=== PATIENT | female | born 1935 | race Caucasian/White ===

== ENCOUNTER 2017-05-06 19:07 | Observation (INO) | payer OTHER, MEDICARE ==
[2017-05-06] MEDS ORDERED: NS 1,000 ML IV ONE (19:33)
[2017-05-06] MEDS ORDERED: ONDANSETRON 4 MG/2 ML VIAL IVP ONE (19:33)
--- NOTE | 2017-05-06 19:33 | EDPHY ---
H & P Stated Complaint: abd pain Time Seen by Provider: 05/06/17 19:15 HPI/ROS: HPI CHIEF COMPLAINT: Abdominal pain, nausea, vomiting HISTORY OF PRESENT ILLNESS: This patient is a 81-year-old female she is very pleasant, she has a history of hypertension, AFib on Coumadin, history of small- bowel obstruction, history of a Minerva fundoplication, gastroplexy, presents emergency room with a few days of nausea, abdominal bloating and abdominal discomfort. Belching. She does states she still passing gas and having bowel movements. No vomiting. She presents emergency room if she is having ongoing abdominal discomfort and bloating. She is concerned she may have another small- bowel obstruction. Past Medical History: Hypertension, AFib on Coumadin, SBO Past Surgical History: Minerva fundoplication, gastroplexy, congenital diaphragmatic hernia repair Social History: Denies drugs alcohol tobacco. Family History: Noncontributory ROS REVIEW OF SYSTEMS: A comprehensive 10 point review of systems is otherwise negative aside from elements mentioned in the history of present illness. Exam Constitutional triage nursing summary reviewed, vital signs reviewed, awake/ alert. Eyes normal conjunctivae and sclera, EOMI, PERRLA. HENT normal inspection, atraumatic, moist mucus membranes, no epistaxis, neck supple/ no meningismus, no raccoon eyes. Respiratory clear to auscultation bilaterally, normal breath sounds, no respiratory distress, no wheezing. Cardiovascular rate normal, regular rhythm, no murmur, no edema, distal pulses normal. Gastrointestinal mild tender palpation diffusely, no guarding or peritoneal signs, distended abdomen, hyperactive bowel sounds, no rebound, no guarding, no distension, no pulsatile mass. Genitourinary no CVA tenderness. Musculoskeletal no midline vertebral tenderness, full range of motion, no calf swelling, no tenderness of extremities, no meningismus, good pulses, neurovascularly intact. Skin pink, warm, & dry, no rash, skin atraumatic. Neurologic awake, alert and oriented x 3, AAOx3, moves all 4 extremities equally, motor intact, sensory intact, CN II-XII intact, normal cerebellar, normal vision, normal speech. Psychiatric normal mood/affect. Heme/Lymph/Immune no lymphadenopathy. Differential diagnosis includes but is not limited to and in no particular order : Bowel obstruction, appendicitis, gallbladder disease, diverticulitis, colitis , enteritis, perforated viscus, gastritis, GERD, esophagitis, urinary tract infection, pyelonephritis, kidney stones Medical Decision Making: Plan for this patient IV establishment with IV fluid bolus, IV Zofran nausea, CT scan abdomen pelvis with IV contrast rule out acute abdominal process or SBO, check electrolytes, and re-evaluate. Re-evaluation: EKG interpretation by me on record in [facility] system. Impression time of EKG 2020, this is sinus rhythm no ST elevation no significant ST depression or significant T-wave abnormality. 2138: Patient's CT scan shows no evidence SBO but does show gastric outlet obstruction. Unclear etiology at this time. However given the gastric abnormality is fluid-filled she will benefit from an NG tube. I will admit her to the hospitalist service, additionally I will consult surgery for evaluation of this. 2139: spoke with Dr. Jack 2139: Spoke with Dr. Campbell For consult. 2140: Spoke with patient at length. She agrees for NG tube. She agrees for admission. Source: Patient - Personal History Current Tetanus/Diphtheria Vaccine: Yes Current Tetanus Diphtheria and Acellular Pertussis (TDAP): Yes - Medical/Surgical History Hx Asthma: No Hx Chronic Respiratory Disease: No Hx Diabetes: No Hx Cardiac Disease: No Hx Renal Disease: No Hx Cirrhosis: No Hx Alcoholism: No Hx HIV/AIDS: No Hx Splenectomy or Spleen Trauma: No Other PMH: gastritis A-fib blood thinners, OA. abd surg. appy, L hip replacement - Social History Smoking Status: Never smoked Constitutional: Initial Vital Signs Temperature (C) 36.5 C 05/06/17 19:11 Heart Rate 65 05/06/17 19:11 Respiratory Rate 16 05/06/17 19:11 Blood Pressure 172/86 H 05/06/17 19:11 O2 Sat (%) 97 05/06/17 19:11 O2 Delivery Mode Room Air Allergies/Adverse Reactions: codeine Allergy (Verified 05/06/17 19:17) Latex, Natural Rubber Allergy (Verified 05/06/17 19:17) levofloxacin [From Levaquin] Allergy (Verified 05/06/17 19:17) Home Medications: Medication Instructions Recorded Calcium Carb W/Vit D [Calcium Carb 500 mg PO DAILY 05/06/17 W/Vit D 500/200 (*)] Cholecalciferol Vit D3 [Vitamin D3 1,000 units PO DAILY 05/06/17 (*)] Cyanocobalamin [Vitamin B12 (*)] 1,000 mcg PO DAILY 05/06/17 Herbals/Supplements -Info Only 1 ea PO DAILY 05/06/17 Lisinopril [Zestril 40 mg (*)] 40 mg PO DAILY 05/06/17 Methocarbamol [Robaxin 750 mg (*)] 750 mg PO QID PRN 05/06/17 Metoprolol Succinate 25 mg PO DAILY 05/06/17 Metoprolol Succinate 50 mg PO HS 05/06/17 Multivitamins [Multivitamin (*)] 1 each PO DAILY 05/06/17 Pantoprazole Sodium [Protonix 40mg 40 mg PO BID 05/06/17 (*)] Polyethylene Glycol 3350 [Miralax 17 gm PO DAILY 05/06/17 17 gm (*)] Warfarin Sodium 5 mg PO TUTH 05/06/17 Warfarin Sodium [Coumadin 2.5MG 2.5 mg PO SUMOWEFRSA 05/06/17 (*)] traMADol [Ultram 50 mg (*)] 50 mg PO Q6 PRN 05/06/17 Medical Decision Making - Data Points Laboratory Results: Laboratory Results 05/06/17 19:49 05/06/17 19:49 Medications Given: Discontinued Medications Al Hydroxide/Mg Hydroxide (Maalox Susp) 30 ml PO ONCE ONE Stop: 05/06/17 20:15 Last Admin: 05/06/17 20:19 Dose: 30 ml Hydromorphone HCl (Dilaudid) 0.2 - 0.4 mg IVP Q2HRS PRN PRN Reason: Pain, Severe Unable to Take PO Stop: 05/16/17 22:27 Last Admin: 05/07/17 08:24 Dose: 0.2 mg Hyoscyamine Sulfate (Levsin, Hyomax-Sl) 0.25 mg PO ONCE ONE Stop: 05/06/17 20:15 Last Admin: 05/06/17 20:19 Dose: 0.25 mg Sodium Chloride (Ns) 1,000 mls @ 0 mls/hr IV EDNOW ONE; Wide Open PRN Reason: Protocol Stop: 05/06/17 19:34 Last Admin: 05/06/17 19:47 Dose: 1,000 mls Dextrose/Sodium Chloride (D5w 1/2 Ns) 1,000 mls @ 100 mls/hr IV CONT VICKY Stop: 11/02/17 22:29 Last Admin: 05/07/17 07:36 Dose: 1,000 mls Lidocaine (Lidocaine 2% Viscous) 15 ml PO ONCE ONE Stop: 05/06/17 20:15 Last Admin: 05/06/17 20:19 Dose: 15 ml Lisinopril (Zestril) 40 mg PO DAILY VICKY Stop: 11/03/17 11:29 Last Admin: 05/07/17 12:38 Dose: Not Given Ondansetron HCl (Zofran) 4 mg IVP EDNOW ONE Stop: 05/06/17 19:34 Last Admin: 05/06/17 19:55 Dose: 4 mg Pantoprazole Sodium (Protonix) 40 mg PO BID VICKY Stop: 11/03/17 11:29 Last Admin: 05/07/17 12:41 Dose: 40 mg Warfarin Sodium (Coumadin) 2.5 mg PO SUMOWEFRSA VICKY Stop: 11/03/17 11:29 Last Admin: 05/07/17 13:12 Dose: Not Given Departure - Departure Disposition: [facility] Acute Clinical Impression: Gastric outlet obstruction Condition: Fair
[2017-05-06] MEDS ORDERED: IOPAMIDOL (ISOVUE-300) 100 ML BTL ONE (19:46)
[2017-05-06 19:55] LABS: PLATELET COUNT 274 10^3/uL (150-400)
[2017-05-06 20:04] LABS: INR 3.31 (0.83-1.16); PROTIME(PATIENT) 33.4 SEC (12.0-15.0)
[2017-05-06] MEDS ORDERED: HYOSCYAMINE SULFATE 0.125 MG TAB PO ONE (20:14)
[2017-05-06] MEDS ORDERED: LIDOCAINE 2% VISCOUS 15 ML UDCUP PO ONE (20:14)
[2017-05-06] MEDS ORDERED: MAG HYDROX/AL HYDROX/SIMETH 30 ML UDCUP PO ONE (20:14)
--- NOTE | 2017-05-06 20:24 | CPEKG ---
Heart Rate: 58 RR Interval: 1034 P-R Interval: 192 QRSD Interval: 100 QT Interval: 428 QTC Interval: 421 P [place]: 58 QRS [place]: 13 T Wave [place]: 28 EKG Severity - ABNORMAL ECG - EKG Impression: SINUS RHYTHM EKG Impression: SUPRAVENTRICULAR BIGEMINY Electronically Signed By: Serge Amaya 06-May-2017 23:13:41
[2017-05-06] MEDS ORDERED: ONDANSETRON DISINTEGRATING 4 MG TAB PO PRN (22:28)
[2017-05-06] MEDS ORDERED: ONDANSETRON 4 MG/2 ML VIAL IVP PRN (22:28)
[2017-05-06] MEDS ORDERED: PROMETHAZINE HCL 25 MG/ML INJ IVP PRN (22:28)
[2017-05-06] MEDS ORDERED: ACETAMINOPHEN 325 MG TAB PO PRN (22:28)
[2017-05-06] MEDS ORDERED: HYDROmorphONE/DILAUDID 2 MG/ML INJ IVP PRN (22:28)
[2017-05-06] MEDS ORDERED: D5W 1/2 NS 1,000 ML IV SCH (22:30)
--- NOTE | 2017-05-07 01:27 | PDGENHP ---
History and Physical - Chief Complaint Abdominal pain - History of Present Illness 81 yo F w/ hx of hiatal hernia s/p repair, gastroparesis, and AF presents with nausea, abdominal distention, and pain. Patient first noticed mild symptoms of distention and nausea 2 days ago. The symptoms persisted over the last 2 days and worsened today, so she presented to the ED. In the ED CT scan was revealing of significant gastric distention c/w gastroparesis vs. gastric outlet obstruction. Her symptoms have improved significantly after the placement of an NGT. She denies fevers, chills, diarrhea, BRBPR, and melena. She describes that she first experienced issues from hiatal hernia in 2014. She has a likely fundoplication in 2016 for this. Since, she has had occasional issues with gastroparesis. History Information - Allergies/Home Medication List Allergies/Adverse Reactions: codeine Allergy (Verified 05/06/17 19:17) Latex, Natural Rubber Allergy (Verified 05/06/17 19:17) levofloxacin [From Levaquin] Allergy (Verified 05/06/17 19:17) Home Medications: Calcium Carb W/Vit D [Calcium Carb W/Vit D 500/200 (*)] 500 mg PO DAILY [Last Taken 05/06/17] Cholecalciferol Vit D3 [Vitamin D3 (*)] 1,000 units PO DAILY 05/06/17 [Last Taken 05/06/17] Cyanocobalamin [Vitamin B12 (*)] 1,000 mcg PO DAILY 05/06/17 [Last Taken ] Herbals/Supplements -Info Only 1 ea PO DAILY 05/06/17 [Last Taken Unknown] Lisinopril [Zestril 40 mg (*)] 40 mg PO DAILY 05/06/17 [Last Taken 05/06/17] Methocarbamol [Robaxin 750 mg (*)] 750 mg PO QID PRN 05/06/17 [Last Taken Unknown] Metoprolol Succinate 25 mg PO DAILY 05/06/17 [Last Taken 05/06/17] Metoprolol Succinate 50 mg PO HS 05/06/17 [Last Taken 05/05/17] Multivitamins [Multivitamin (*)] 1 each PO DAILY 05/06/17 [Last Taken 05/06/17] Pantoprazole Sodium [Protonix 40mg (*)] 40 mg PO BID 05/06/17 [Last Taken ] Polyethylene Glycol 3350 [Miralax 17 gm (*)] 17 gm PO DAILY 05/06/17 [Last Taken 05/06/17] Warfarin Sodium 5 mg PO TUTH 05/06/17 [Last Taken 05/05/17] Warfarin Sodium [Coumadin 2.5MG (*)] 2.5 mg PO SUMOWEFRSA 05/06/17 [Last Taken 05/04/17] traMADol [Ultram 50 mg (*)] 50 mg PO Q6 PRN 05/06/17 [Last Taken Unknown] I have personally reviewed and updated: family history, medical history - Past Medical History no pertinent PMH Additional medical history: Hiatal hernia s/p repair. Gastroparesis - Surgical History Additional surgical history: Fundoplication - Family History Additional family history: Grandmother had stomach cancer - Social History Smoking Status: Never smoked Review of Systems Review of Systems: ROS: 10pt was reviewed & negative except for what was stated in HPI & below Physical Exam Physical Exam: Temp Pulse Resp BP Pulse Ox 36.5 C 89 20 155/80 H 95 05/06/17 19:11 05/06/17 22:34 05/06/17 22:34 05/06/17 22:34 05/06/17 22:34 Constitutional: no apparent distress, not in pain Eyes: PERRL, EOMI Ears, Nose, Mouth, Throat: moist mucous membranes, no oral mucosal ulcers Cardiovascular: regular rate and rhythym, no murmur, rub, or gallop Respiratory: no respiratory distress, no rales or rhonchi Gastrointestinal: normoactive bowel sounds, soft, non-tender abdomen Skin: warm, normal color Musculoskeletal: full muscle strength, no muscle tenderness Neurologic: AAOx3, CN II-XII Intact Psychiatric: interacting appropriately, not anxious Lab Data & Imaging Review 05/06/17 19:49 05/06/17 19:49 WBC 7.92 10^3/uL (3.80-9.50) 05/06/17 19:49 RBC 4.57 10^6/uL (4.18-5.33) 05/06/17 19:49 Hgb 13.8 g/dL (12.6-16.3) 05/06/17 19:49 Hct 42.4 % (38.0-47.0) 05/06/17 19:49 MCV 92.8 fL (81.5-99.8) 05/06/17 19:49 MCH 30.2 pg (27.9-34.1) 05/06/17 19:49 MCHC 32.5 g/dL (32.4-36.7) 05/06/17 19:49 RDW 13.2 % (11.5-15.2) 05/06/17 19:49 Plt Count 274 10^3/uL (150-400) 05/06/17 19:49 MPV 10.0 fL (8.7-11.7) 05/06/17 19:49 Neut % (Auto) 62.0 % (39.3-74.2) 05/06/17 19:49 Lymph % (Auto) 26.4 % (15.0-45.0) 05/06/17 19:49 [place] % (Auto) 9.6 % (4.5-13.0) 05/06/17 19:49 Eos % (Auto) 1.1 % (0.6-7.6) 05/06/17 19:49 Baso % (Auto) 0.5 % (0.3-1.7) 05/06/17 19:49 Nucleat RBC Rel Count 0.0 % (0.0-0.2) 05/06/17 19:49 Absolute Neuts (auto) 4.91 10^3/uL (1.70-6.50) 05/06/17 19:49 Absolute Lymphs (auto) 2.09 10^3/uL (1.00-3.00) 05/06/17 19:49 Absolute Monos (auto) 0.76 10^3/uL (0.30-0.80) 05/06/17 19:49 Absolute Eos (auto) 0.09 10^3/uL (0.03-0.40) 05/06/17 19:49 Absolute Basos (auto) 0.04 10^3/uL (0.02-0.10) 05/06/17 19:49 Absolute Nucleated RBC 0.00 10^3/uL (0-0.01) 05/06/17 19:49 Immature Gran % 0.4 % (0.0-1.1) 05/06/17 19:49 Immature Gran # 0.03 10^3/uL (0.00-0.10) 05/06/17 19:49 PT 33.4 SEC (12.0-15.0) H 05/06/17 19:49 INR 3.31 (0.83-1.16) H 05/06/17 19:49 APTT 43.7 SEC (23.0-38.0) H 05/06/17 19:49 VBG Lactic Acid 1.2 mmol/L (0.7-2.1) 05/06/17 19:49 Sodium 138 mEq/L (135-145) 05/06/17 19:49 Potassium 4.0 mEq/L (3.5-5.2) 05/06/17 19:49 Chloride 98 mEq/L (97-110) 05/06/17 19:49 Carbon Dioxide 26 mEq/l (22-31) 05/06/17 19:49 Anion Gap 14 mEq/L (8-16) 05/06/17 19:49 BUN 22 mg/dL (7-23) 05/06/17 19:49 Creatinine 0.8 mg/dL (0.6-1.0) 05/06/17 19:49 Estimated GFR > 60 05/06/17 19:49 Glucose 88 mg/dL (70-100) 05/06/17 19:49 Calcium 9.4 mg/dL (8.5-10.4) 05/06/17 19:49 Total Bilirubin 0.5 mg/dL (0.1-1.4) 05/06/17 19:49 Conjugated Bilirubin 0.4 mg/dL (0.0-0.5) 05/06/17 19:49 Unconjugated Bilirubin 0.1 mg/dL (0.0-1.1) 05/06/17 19:49 AST 43 IU/L (14-46) 05/06/17 19:49 ALT 55 IU/L (9-52) H 05/06/17 19:49 Alkaline Phosphatase 107 IU/L (38-126) 05/06/17 19:49 Troponin I < 0.012 ng/mL (0.000-0.034) 03/16/18 20:20 Total Protein 7.6 g/dL (6.3-8.2) 05/06/17 19:49 Albumin 4.6 g/dL (3.5-5.0) 05/06/17 19:49 Lipase 385 IU/L (23-300) H 05/06/17 19:49 Imaging Review: Imaging Impressions Abdomen CT 05/06/17 19:42 Impression: Massive air and fluid-filled distention of the stomach suggesting gastroparesis or gastric outlet obstruction. Other findings as above. Results called to Dr. Sandhu at 9:20 PM. Chest X-Ray 05/06/17 22:36 Impression: NG tube extends to the stomach, with persistent air-filled distention of the stomach underneath the left hemidiaphragm. Assessment & Plan Assessment: 81 yo F w/ hx of AF, hiatal hernia s/p repair, and gastroparesis presents with discomfort from significant gastric distention. Plan: 1. Gastric distention - Imaging findings c/w gastroparesis vs. gastric outlet obstruction. I suspect the former noting prior history of the same after repair of hiatal hernia in 2016. - Admit for observation and conservative management - NGT placed, NPO, mIVF, anti-emetics - Surgery service consulted, appreciate assistance 2. Hx hiatal hernia - S/p surgical repair in 2016, likely predisposing to above. 3. AF - On warfarin for AC and metoprolol for rate control. INR 3.3 on admission , monitor daily INR. Diet - NPO, ADAT Code - Full Ppx - SCDs Dispo - Admit under observation status
[2017-05-07 06:01] LABS: PLATELET COUNT 202 10^3/uL (150-400)
[2017-05-07 06:09] LABS: INR 3.72 (0.83-1.16); PROTIME(PATIENT) 36.5 SEC (12.0-15.0)
[2017-05-07] MEDS ORDERED: METHOCARBAMOL 750 MG TAB PO PRN (11:25)
[2017-05-07] MEDS ORDERED: PANTOPRAZOLE SODIUM 40 MG TAB PO SCH (11:30)
[2017-05-07] MEDS ORDERED: WARFARIN SODIUM 2.5 MG TAB PO SCH (11:30)
[2017-05-07] MEDS ORDERED: LISINOPRIL 40 MG TAB PO SCH (11:30)
[2017-05-07] MEDS ORDERED: PANTOPRAZOLE SODIUM 40 MG TAB PO ONE (12:40)
[2017-05-07 14:38] VITALS: BP 176/87; PULSE 59; RESP 18; TEMP 98.2; O2SAT 92
--- NOTE | 2017-05-07 18:30 | GDS ---
[f rep st] DISCHARGE SUMMARY DISCHARGE DIAGNOSES: 1. Gastroparesis with bloating. 2. Large gastric bubble. HOSPITAL COURSE: The patient had an NG tube placed with symptomatic relief. She tolerated an oral d iet. She is discharged home. I have discussed it with the cnc maintenance technician who will have a nurse from their practice call her. The patient had no metabolic derangements and a nontender abdominal ex am. /[id number]/MODL
[2017-05-07] MEDS ORDERED: METOPROLOL SUCCINATE XR 25 MG TAB PO SCH (21:00)
[2017-05-08] MEDS ORDERED: MULTIVITAMINS 1 EACH TAB PO SCH (09:00)
[2017-05-08] MEDS ORDERED: POLYETHYLENE GLYCOL 3350 17 GM PKT PO SCH (09:00)
[2017-05-08] MEDS ORDERED: METOPROLOL SUCCINATE XR 25 MG TAB PO SCH (09:00)
[2017-05-10] MEDS ORDERED: WARFARIN SODIUM 5 MG TAB PO SCH (11:25)
== END 2017-05-07 14:37 | disposition home or self-care (01) ==
PROVIDERS: ADMIT Student in an Organized Health Care Education/Training Program; ATTEND Internal Medicine
PROC: 0D9670Z Drainage of Stomach with Drainage Device, Via Natural or Artificial Opening (ICD-10-PCS; principal; 2017-05-06)
DX: K31.84 Gastroparesis (principal); R14.0 Abdominal distension (gaseous); E86.9 Volume depletion, unspecified; I10 Essential (primary) hypertension; I48.91 Unspecified atrial fibrillation; Z79.01 Long term (current) use of anticoagulants; Z96.642 Presence of left artificial hip joint
CPT/HCPCS: 71045; 74177; 93005; 96361; 96374; 99285; G0378; J1170; J2405; Q9967

== ENCOUNTER 2018-04-10 16:08 | Inpatient (IN) | payer OTHER, MEDICARE ==
--- NOTE | 2018-04-10 16:30 | EDPHY ---
H & P Time Seen by Provider: 04/10/18 16:18 HPI/ROS: CHIEF COMPLAINT: Left graham hematoma HISTORY OF PRESENT ILLNESS: Patient is an 82-year-old female with a history of atrial fibrillation on Coumadin. She had a doctor's visit earlier this morning and was started on Lasix for some mild lower extremity edema. When she was getting back into her car she bumped her left graham on something. Since then she has developed large hematoma to her left graham. No abrasion or laceration. She has been ambulatory. Her last INR was checked 2 weeks ago and was 2.5. No hip or knee pain. She did not injure her arms head or neck. Severity: Moderate Modifying factors: None REVIEW OF SYSTEMS: Constitutional: denies: chills, fever, recent illness, recent injury EENTM: denies: blurred vision, double vision, nose congestion Respiratory: denies: cough, shortness of breath Cardiac: denies: chest pain, irregular heart rate, lightheadedness, palpitations Gastrointestinal/Abdominal: denies: abdominal pain, diarrhea, nausea, vomiting, blood streaked stools Genitourinary: denies: dysuria, frequency, hematuria, pain Musculoskeletal: denies: joint pain, muscle pain Skin: See HPI Neurological: denies: headache, numbness, paresthesia, tingling, dizziness, weakness Hematologic/Lymphatic: denies: blood clots, easy bleeding, easy bruising Immunologic/allergic: denies: HIV/AIDS, transplant 10 systems reviewed and negative except as noted EXAM: GENERAL: Well-appearing, well-nourished and in no acute distress. HEAD: Atraumatic, normocephalic. EYES: Pupils equal round and reactive to light, extraocular movements intact, sclera anicteric, conjunctiva are normal. ENT: TMs normal, nares patent, oropharynx clear without exudates. Moist mucous membranes. NECK: Normal range of motion, supple without lymphadenopathy or JVD. LUNGS: Breath sounds clear to auscultation bilaterally and equal. No wheezes rales or rhonchi. HEART: Regular rate and rhythm without murmurs, rubs or gallops. ABDOMEN: Soft, nontender, normoactive bowel sounds. No guarding, no rebound. No masses appreciated. BACK: No CVA tenderness, no spinal tenderness, step-offs or deformities EXTREMITIES: See below, Normal range of motion, no pitting or edema. No clubbing or cyanosis. Does have some purplish discoloration to her foot which she states has chronic. No new paresthesias or weakness. NEUROLOGICAL: Cranial nerves II through XII grossly intact. Normal speech, normal gait. 5/5 strength, normal movement in all extremities, normal sensation , normal reflexes PSYCH: Normal mood, normal affect. SKIN: Patient has a large slightly tense hematoma to the left anterior graham. 10 x 4 cm. No visible abrasion or laceration. Source: Patient, Family Exam Limitations: No limitations - Personal History Current Tetanus/Diphtheria Vaccine: Yes - Medical/Surgical History Hx Asthma: No Hx Chronic Respiratory Disease: No Hx Diabetes: No Hx Cardiac Disease: No Hx Renal Disease: No Hx Cirrhosis: No Hx Alcoholism: No Hx HIV/AIDS: No Hx Splenectomy or Spleen Trauma: No Other PMH: gastritis A-fib blood thinners, OA. abd surg. appy, L hip replacement - Family History Significant Family History: No pertinent family hx - Social History Smoking Status: Never smoked Alcohol Use: None Constitutional: Initial Vital Signs Temperature (C) 36.5 C 04/10/18 16:18 Heart Rate 70 04/10/18 16:18 Respiratory Rate 18 04/10/18 16:18 Blood Pressure 211/89 H 04/10/18 16:18 O2 Sat (%) 96 04/10/18 16:18 O2 Delivery Mode Room Air Allergies/Adverse Reactions: levofloxacin [From Levaquin] Allergy (Severe, Verified 04/10/18 22:48) Edema of Extremities codeine Allergy (Verified 04/10/18 16:18) Latex, Natural Rubber Allergy (Verified 04/10/18 16:18) Home Medications: Medication Instructions Recorded Cyanocobalamin [Vitamin B12 (*)] 1,000 mcg PO DAILY 05/06/17 Herbals/Supplements -Info Only 1 ea PO DAILY 05/06/17 Lisinopril [Zestril 40 mg (*)] 40 mg PO DAILY 05/06/17 Methocarbamol [Robaxin 750 mg (*)] 750 mg PO QID PRN 05/06/17 Metoprolol Succinate 25 mg PO BID 05/06/17 Multivitamins [Multivitamin (*)] 1 tab PO DAILY 05/06/17 Pantoprazole Sodium [Protonix 40mg 40 mg PO BID 05/06/17 (*)] Polyethylene Glycol 3350 [Miralax 17 gm PO DAILY 05/06/17 17 gm (*)] Warfarin Sodium 5 mg PO TUTH@18 05/06/17 traMADol [Ultram 50 mg (*)] 50 mg PO Q6 PRN 05/06/17 Acetaminophen [Tylenol ES 500 mg 1,000 mg PO BID PRN 04/10/18 (*)] Acetaminophen/Diphenhydramine 0.5 tab PO HS 04/10/18 [Acetaminophen Pm Caplet] Furosemide [Lasix 20 MG (*)] 20 mg PO DAILY 04/10/18 Gabapentin [Neurontin 100 MG (*)] 100 mg PO TID 04/10/18 Sodium Cl Nasal [[place] (*)] 2 spray NS BID 04/10/18 Warfarin Sodium [Coumadin 5MG (*)] 2.5 mg PO SUMOWEFRSA@18 04/10/18 ED Images - Extremities Legs Front/Back: 1 - 10 x 4 cm moderately tense hematoma, tender to palpation, visible bruising , no erythema. No warmth. No open wound or abrasion. Medical Decision Making - Diagnostics Imaging: Discussed imaging studies w/ banquet server on call Radiologist ED Course/Re-evaluation: The patient has a large hematoma to her left graham. It does not appear ruptured or infected. It is tender. Dressed with sterile gauze and slight compression with Genaro wrap. Ice therapy placed. Patient is requesting x-ray. We did discussed attempting to drain the hematoma although I would be concerned for potential infection and would be concerned for chronic wound healing in this 82- year-old woman. Agreed to treat with like compression and elevation and ice at this point it. Will check her INR. Will have follow-up with Dr. Holloway in the [facility]. 4:45 p.m. the patient's x-ray does not reveal any fractures. Her hematoma has been wrapped and she is feeling somewhat better. Discussed elevation and ice with her son. I have paged surgery for curbside and follow-up. Discussed the case with Dr. Gutierrez who agrees with this plan but encourages warm compresses rather than ice. Will have the patient road test. If she cannot manage at home alone Will possibly require admission. 5:10 p.m. the patient was able to ambulate without difficulty. She feels comfortable going home. Her son will be with her. 5:30 p.m. the patient's pain is increased. She and her son decided now that they would like to be admitted to the hospital for pain control and treatment before she goes home. She does live alone. I have paged hospital service. 5:50 p.m. discussed the case with Dr. Correa who will admit to the hospital service. 7:10 p.m. the patient's pain increased and we noticed some blood leaking from her Genaro wrap. Her wound was un-wrapped in it had spontaneously tore open approximately 4 cm. I cleaned it with Betadine and then with sterile drapes and gloves expressed a large portion of the hematoma. It was then again dressed with sterile dressings and a moderately tight Genaro bandage. We will have her keep it more elevated. I have paged surgical service to have them consult. 7:25 p.m. I spoke with Dr. Correa about the update in the patient's status. Patient's blood pressure initially dropped after receiving Ultram and then Dilaudid and then having her pain relieved with expression of the hematoma. She rebounded easily with small amount of IV fluids and time. We have changed her transport to EMS. Differential Diagnosis: Partial list of the Differential diagnosis considered include but were not limited to; hematoma, abrasion and although unlikely based on the history and physical exam, I also considered infection, hemorrhage, fracture. I discussed these differential diagnoses and the plan with the patient as well as the usual and expected course. The patient understands that the diagnosis is provisional and that in medicine we are not always correct and that further workup is often warranted. Usual and customary warnings were given. All of the patient's questions were answered. The patient was instructed to return to the emergency department should the symptoms at all worsen or return, otherwise to followup with the physician as we discussed. - Data Points Medications Given: Acetaminophen (Tylenol) 650 mg PO Q4HRS PRN PRN Reason: Pain, Mild/Fever, Can Take PO Stop: 10/07/18 21:39 Last Admin: 04/11/18 07:21 Dose: 650 mg Hydrocodone Bitart/Acetaminophen ([place] 5/325) 1 - 2 tab PO Q4HRS PRN PRN Reason: Pain, Moderate Able to Take PO Stop: 04/20/18 21:39 Last Admin: 04/11/18 00:09 Dose: 1 tab Gabapentin (Neurontin) 100 mg PO TID [facility] Stop: 10/08/18 08:59 Last Admin: 04/11/18 09:43 Dose: 100 mg Cefazolin Sodium/Dextrose (Ancef 1 Gm (Premix)) 50 mls @ 200 mls/hr IV Q8HRS VICKY PRN Reason: Protocol Stop: 05/10/18 23:44 Last Admin: 04/11/18 14:08 Dose: 50 mls Tramadol HCl (Ultram) 50 mg PO Q6HRS PRN PRN Reason: Pain, Moderate Able to Take PO Stop: 10/08/18 08:54 Last Admin: 04/11/18 09:43 Dose: 50 mg Discontinued Medications Acetaminophen (Tylenol) 650 mg PO EDNOW ONE Stop: 04/10/18 18:24 Last Admin: 04/10/18 18:26 Dose: 650 mg Hydromorphone HCl (Dilaudid) 0.5 mg IVP EDNOW ONE Stop: 04/10/18 18:47 Last Admin: 04/10/18 18:48 Dose: 0.5 mg Sodium Chloride (Ns) 1,000 mls @ 0 mls/hr IV EDNOW ONE; Wide Open PRN Reason: Protocol Stop: 04/10/18 19:16 Last Admin: 04/10/18 19:17 Dose: 1,000 mls Sodium Chloride (Ns) 1,000 mls @ 0 mls/hr IV EDNOW ONE; Wide Open PRN Reason: Protocol Stop: 04/10/18 22:10 Last Admin: 04/10/18 22:00 Dose: 1,000 mls Ondansetron HCl (Zofran) 4 mg IVP EDNOW ONE Stop: 04/10/18 22:11 Last Admin: 04/10/18 22:11 Dose: 4 mg Tramadol HCl (Ultram) 50 mg PO EDNOW ONE Stop: 04/10/18 18:24 Last Admin: 04/10/18 18:27 Dose: 50 mg Departure - Departure Disposition: [facility] Inpatient Acute Clinical Impression: Bleeding on Coumadin Traumatic hematoma of left lower leg Qualifiers: Encounter type: initial encounter Qualified Code(s): S80.12XA - Contusion of left lower leg, initial encounter Condition: Fair
[2018-04-10] MEDS ORDERED: ACETAMINOPHEN 325 MG TAB PO ONE (18:23)
[2018-04-10] MEDS ORDERED: traMADol 50 MG TAB PO ONE (18:23)
[2018-04-10] MEDS ORDERED: HYDROmorphONE/DILAUDID 2 MG/ML INJ IVP ONE (18:46)
[2018-04-10] MEDS ORDERED: NS 1,000 ML IV ONE ×2 (19:15→22:09)
[2018-04-10] MEDS ORDERED: ONDANSETRON DISINTEGRATING 4 MG TAB PO PRN (21:40)
[2018-04-10] MEDS ORDERED: HYDROmorphONE/DILAUDID 1 MG/ML INJ IVP PRN (21:40)
[2018-04-10] MEDS ORDERED: ONDANSETRON 4 MG/2 ML VIAL IVP PRN (21:40)
[2018-04-10] MEDS ORDERED: oxyCODONE IR 5 MG TAB PO PRN (21:40)
[2018-04-10] MEDS ORDERED: PROMETHAZINE HCL 25 MG/ML INJ IVP PRN (21:40)
[2018-04-10] MEDS ORDERED: ONDANSETRON 4 MG/2 ML VIAL IVP ONE (22:10)
--- NOTE | 2018-04-10 23:14 | PDGENHP ---
History and Physical - Chief Complaint leg hematoma - History of Present Illness 82 yo F with PMH of a fib on chronic AC presenting with concerns for a large leg hematoma after bumping her graham on a car door. She was seen in urgent care where the hematoma was being monitored and there was a plan to admit her for difficulty walking due to pain associated with this hematoma. The hematoma spontaneously ruptured and shortly after that patient became hypotensive which resolved after a short amount of time. She was sent to [facility] for admission and seen by surgery and upon dressing change there was a subsequent rupture and blood released under pressure. She was doing well initially but a bit later she again became hypotensive to the 60s systolic with associated diaphoresis and nausea. This resolved with a bit of time. Patient otherwise with no complaints and uneventful ER stay. History Information - Allergies/Home Medication List Allergies/Adverse Reactions: levofloxacin [From Levaquin] Allergy (Severe, Verified 04/10/18 22:48) Edema of Extremities codeine Allergy (Verified 04/10/18 16:18) Latex, Natural Rubber Allergy (Verified 04/10/18 16:18) Home Medications: Cyanocobalamin [Vitamin B12 (*)] 1,000 mcg PO DAILY 05/06/17 [Last Taken 08:00] Herbals/Supplements -Info Only 1 ea PO DAILY 05/06/17 [Last Taken 04/10/18 08:00 ] Lisinopril [Zestril 40 mg (*)] 40 mg PO DAILY 05/06/17 [Last Taken 04/10/18 08: 00] Methocarbamol [Robaxin 750 mg (*)] 750 mg PO QID PRN 05/06/17 [Last Taken Unknown] Metoprolol Succinate 25 mg PO BID 05/06/17 [Last Taken 04/10/18 08:00] Multivitamins [Multivitamin (*)] 1 tab PO DAILY 05/06/17 [Last Taken 04/10/18 08 :00] Pantoprazole Sodium [Protonix 40mg (*)] 40 mg PO BID 05/06/17 [Last Taken 08:00] Polyethylene Glycol 3350 [Miralax 17 gm (*)] 17 gm PO DAILY 05/06/17 [Last Taken 04/10/18 08:00] Warfarin Sodium 5 mg PO [facility]18 05/06/17 [Last Taken 04/06/18] traMADol [Ultram 50 mg (*)] 50 mg PO Q6 PRN 05/06/17 [Last Taken 04/10/18 16:00] Acetaminophen [Tylenol ES 500 mg (*)] 1,000 mg PO BID PRN 04/10/18 [Last Taken 04/10/18 12:00] Acetaminophen/Diphenhydramine [Acetaminophen Pm Caplet] 0.5 tab PO HS 04/10/18 [ Last Taken 04/09/18 21:00] Furosemide [Lasix 20 MG (*)] 20 mg PO DAILY 04/10/18 [Last Taken 04/10/18 10:00] Gabapentin [Neurontin 100 MG (*)] 100 mg PO TID 04/10/18 [Last Taken 04/10/18 13 :00] Sodium Cl Nasal [[place] (*)] 2 spray NS BID 04/10/18 [Last Taken 04/10/18 08:00] Warfarin Sodium [Coumadin 5MG (*)] 2.5 mg PO SUMOWEFRSA@18 04/10/18 [Last Taken 04/09/18 18:00] I have personally reviewed and updated: family history, medical history, social history, surgical history - Past Medical History atrial fibrillation, arthritis, GERD, hypertension Additional medical history: Hiatal hernia s/p repair. Gastroparesis - Surgical History Additional surgical history: Fundoplication - Family History Additional family history: Grandmother had stomach cancer - Social History Smoking Status: Never smoked Alcohol Use: None Drug Use: None Additional social history: lives independently Review of Systems Review of Systems: ROS: 10pt was reviewed & negative except for what was stated in HPI & below Physical Exam Physical Exam: Temp Pulse Resp BP Pulse Ox 36.6 C 70 16 150/90 H 96 04/10/18 21:15 04/10/18 21:15 04/10/18 21:15 04/10/18 21:15 04/10/18 21:15 O2 (L/minute) 2 Constitutional: no apparent distress, appears nourished Eyes: PERRL, anicteric sclera Ears, Nose, Mouth, Throat: moist mucous membranes, hearing normal Cardiovascular: regular rate and rhythym, no murmur, rub, or gallop, No edema Respiratory: no respiratory distress, no rales or rhonchi Gastrointestinal: normoactive bowel sounds, soft, non-tender abdomen Genitourinary: no bladder tenderness Skin: warm, other (large hematoma on left graham, dusky toes on left) Musculoskeletal: pain with ROM Neurologic: AAOx3 Psychiatric: interacting appropriately, not anxious, not encephalopathic Lab Data & Imaging Review POC Sodium 131 mEq/L (135-145) L 04/10/18 19:33 POC Potassium 4.3 mEq/L (3.3-5.0) 04/10/18 19:33 POC Chloride 105.0 mEq/L (97-110) 04/10/18 19:33 POC Total CO2 27 mEq/L (22-31) 04/10/18 19:33 POC BUN 20 mg/dL (7-23) 04/10/18 19:33 POC Creatinine 0.5 mg/dL (0.6-1.0) L 04/10/18 19:33 POC Glucose 123 mg/dL (70-100) H 04/10/18 19:33 POC Calcium 9.2 mg/dL (8.5-10.4) 04/10/18 19:33 Visualized and Interpreted imaging results: Yes Interpretation: tib/fib xray without fracture Assessment & Plan Assessment: Traumatic hematoma of left lower leg (Acute) Bleeding on Coumadin (Acute) 82 yo F with PMH of a fib on AC presenting with large graham hematoma and episodes of hypotension in ER # graham hematoma: appreciate surgery eval, at this time they recommend continued compression and conservative management. Given open wound, also recommend ppx abx with ancef for now. Will get pt/ot to evaluate, continue pain medications # hypotension: patient with 2 episodes of hypotension in the ER following wound blood loss and suspect due to vasovagal episode, will monitor on tele, hold antihypertensives. ECG reviewed and was NSR without e/o ischemia or other concerning findings. Will order labs including cbc/bmp/trop. # a fib: will hold coumadin given above, monitor on tele # arthritis: pt/ot # observation status Patient new to my care. Old records reviewed and summarized as above. Care plan reviewed with ER doctor and General surgery. Further hx obtained from patients son present at bedside.
--- NOTE | 2018-04-10 23:21 | GCON ---
[f rep st] CONSULTATION TRAUMA CONSULTATION HISTORY OF PRESENT ILLNESS: The patient is an 82-year-old female who went to see her family physician today for swelling in her legs. Lasix was prescribed. As she left the office she bumped her leg on the car door and it immediately began to swell. She tried icing it. She went to 2 urgent care centers. At approximately 7 p.m., the large painful hematoma burst [place] [facility] She is on warfarin for atrial fibrillation, and her INR is 3.0. Her leg was carefully dressed and wrapped with an Genaro wrap from the ankle to the knee. She was brought to [facility] for further care. SOCIAL HISTORY: She does not smoke. She drinks alcohol on a very rare occasion. ALLERGIES: She has adverse reaction to codeine as it makes her "pass out." She is allergic to Lasix, as manifested by a rash. 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 CURRENT MEDICATIONS: Include gabapentin for her arthritis. She has just been prescribed Lasix. She takes tramadol 50 mg every 6 hours as needed for pain. She takes lisinopril 40 mg daily for hypertension. She takes metoprolol 50 mg at bedtime and 25 mg every morning. She uses Protonix 40 mg a day. She uses warfarin 2.5 mg on Tuesday, Tuesday, Tuesday, Tuesday and Tuesday. On Tuesday and , she uses 5 mg a day. She takes Robaxin 750 mg four times daily. She uses MiraLAX 17 g a day. She takes herbal supplements. She takes vitamin B12 1000 mcg daily. She takes cholecalciferol, vitamin D3, 1000 units daily. She takes calcium carbonate with vitamin D 500/200 daily. PAST SURGICAL HISTORY: Include an appendectomy, , right partial hip replacement. She had a Belsey fundoplication for a hiatal hernia. Note is made this was after she had a massive bleed which required multiple transfusions in the past. There is no history of rheumatic fever, tuberculosis, or hepatitis. REVIEW OF SYSTEMS: She has bilateral rotator cuff issues. She has hammertoes. She has arthritis in her right knee, her left shoulder, her right hip, and she also has scoliosis. PHYSICAL EXAMINATION: GENERAL APPEARANCE: She is awake, alert and quite pleasant. EXTREMITIES: Her leg was examined after the Genaro wrap was undone and it further decompressed, draining a moderate amount of blood. There is moderate sized a skin tear. The leg is re-dressed with an ABD over the wound. A Kerlix gauze is wrapped from the ankle to the knee. A 2nd Kerlix gauze is taken from the ankle down onto the foot and back up to the leg. 4-inch Genaro was placed on the foot. A 6- inch Genaro was placed in the leg. She has good capillary refill her toes. This does not feel uncomfortable for her. The leg will be elevated. I suggest we push her saturations to 98% and add Ancef 1 g q.8. We will need to use topical antibiotics on the skin tear associated with this contusion. /[id number]/MODL MTDD
[2018-04-11] MEDS: HYDROCODONE/APAP 5/325 TAB PO PRN ×2 (00:09→21:43)
[2018-04-11 01:28] LABS: PLATELET COUNT 191 10^3/uL (150-400)
[2018-04-11] MEDS: ACETAMINOPHEN 325 MG TAB PO PRN ×2 (07:21→16:45)
[2018-04-11 08:45] LABS: PLATELET COUNT 195 10^3/uL (150-400)
[2018-04-11] MEDS: traMADol 50 MG TAB PO PRN (09:43)
[2018-04-11] MEDS: GABAPENTIN 100 MG CAP PO SCH ×3 (09:43→21:14)
--- NOTE | 2018-04-11 09:50 | SOAPPROG ---
SOAP Progress Note Assessment/Plan: Assessment/Plan: 82yo F admitted with traumatic hematoma on anticoagulation To OR tomorrow am at 8:15 for evacuation of hematoma and debridement of skin and soft tissue. Will likely need wound vac. May need delayed STSG Consent in chart Continue therapeutic abx NPO after midnight Warfarin on hold. INR therapeutic Wound care - compression wrap. ABD, kerlix, OLIVER Additionally seen by Dr. Campbell. S: no pain in leg. biggest complaint is hip pain d/t scoliosis O: laying in bed, comfortable, NAD No increased WOB Palpable DP and PT pulse LLE Dressings removed. Large hematoma of L anterior graham with surrounding ecchymosis. Overlying skin sloughing. No erythema. Nontender. Compression wrap reapplied. 04/11/18 14:33 Objective: Vital Signs Temp Pulse Resp BP Pulse Ox 36.7 C 70 18 175/74 H 94 04/11/18 07:43 04/11/18 07:43 04/11/18 07:43 04/11/18 07:43 04/11/18 07:43 Laboratory Results 04/11/18 08:01 04/11/18 08:01 04/10/18 04/11/18 04/12/18 05:59 05:59 05:59 Intake Total 2200 Output Total 950 75 Balance 1250 -75 ICD10 Worksheet Patient Problems: Problems Problem Status Onset Bleeding on Coumadin Acute Traumatic hematoma of left lower leg Acute Gastric outlet obstruction Acute
--- NOTE | 2018-04-11 12:48 | ASMTCMCOM ---
CM Note CM Note Notes: Pt's case discussed in treatment rounds. Pt in with lower leg hematoma after running into a car door. Dr Campbell to take Pt to surgery and will possibly have a wound Vac. PT and OT have been ordered. Needs are TBD at this time. CM to follow. Plan: TBD Date Signed: 04/11/2018 12:48 PM Electronically Signed By:LYUDMILA Calle
[2018-04-11] MEDS ORDERED: METHOCARBAMOL 750 MG TAB PO PRN (15:54)
--- NOTE | 2018-04-11 16:06 | HOSPPROG ---
Hospitalist Progress Note Assessment/Plan: 82 yo F with PMH of a fib on AC presenting with large graham hematoma and episodes of hypotension in ER 1. Left lower leg hematoma: Due to local trauma. - Surgery planning on taking to OR for washout tomorrow AM. May need wound vac, STSG - Continue cefazolin - Pain control with tramadol, norco PRN - PT/OT after procedure - Monitor H/H 2. Episodic hypotension: Likely vagal reaction to blood loss. Now hypertensive. - Resumed home BP meds 3. Atrial fibrillation: - Holding coumadin, monitor INR in AM Code: full Dispo: Switch to inpatient with plan for surgical intervention on hematoma tomorrow Subjective: Feeling well. No pain after hematoma burst. Objective: Vital Signs Temp Pulse Resp BP Pulse Ox 36.8 C 84 18 168/76 H 95 04/11/18 15:17 04/11/18 15:17 04/11/18 15:17 04/11/18 15:17 04/11/18 15:17 Laboratory Results 04/11/18 08:01 04/11/18 08:01 04/10/18 04/11/18 04/12/18 05:59 05:59 05:59 Intake Total 2200 Output Total 950 975 Balance 1250 -975 - Physical Exam Constitutional: no apparent distress, appears nourished, not in pain Eyes: PERRL, anicteric sclera, EOMI Ears, Nose, Mouth, Throat: moist mucous membranes, hearing normal, ears appear normal, no oral mucosal ulcers Cardiovascular: regular rate and rhythym, no murmur, rub, or gallop, edema (BLE) Respiratory: no respiratory distress, no rales or rhonchi, clear to auscultation Gastrointestinal: normoactive bowel sounds, soft, non-tender abdomen, no palpable masses Genitourinary: no bladder fullness, no bladder tenderness, no renal bruits Skin: other (left lower leg wrapped) Musculoskeletal: full muscle strength Neurologic: AAOx3 Psychiatric: interacting appropriately ICD10 Worksheet Patient Problems: Problems Problem Status Onset Bleeding on Coumadin Acute Traumatic hematoma of left lower leg Acute Gastric outlet obstruction Acute
[2018-04-11] MEDS: PANTOPRAZOLE SODIUM 40 MG TAB PO SCH (21:14)
[2018-04-11] MEDS: METOPROLOL SUCCINATE XR 25 MG TAB PO SCH (21:14)
[2018-04-11] MEDS: SODIUM CL NASAL 45 ML BTL NS SCH (23:34)
[2018-04-12 04:38] LABS: INR 2.09 (0.83-1.16); PROTIME(PATIENT) 23.5 SEC (12.0-15.0)
[2018-04-12] MEDS ORDERED: EPINEPHrine 1 MG/ML INJ ONE (07:14)
[2018-04-12] MEDS ORDERED: BUPIVACAINE 0.5% 30 ML SDV ONE (07:14)
--- NOTE | 2018-04-12 07:50 | PDANEPAE ---
ANE History of Present Illness L lower leg I&D ANE Past Medical History - Cardiovascular History Hx Hypertension: Yes Hx Arrhythmias: Yes - Pulmonary History Hx Oxygen in Use at Home: No Hx Sleep Apnea: No Sleep Apnea Screening Result - Last Documented: Positive - Endocrine History Hx Diabetes: No - GI History GERD: mild Gastrointestinal History Comment: gastroparesis - Chronic Pain History Chronic Pain: Yes ANE Review of Systems Review of systems is: negative Review of Systems: - Exercise capacity Exercise capacity: >=4 METS ANE Patient History - Allergies Allergies/Adverse Reactions: levofloxacin [From Levaquin] Allergy (Severe, Verified 04/10/18 22:48) Edema of Extremities codeine Allergy (Verified 04/10/18 16:18) Latex, Natural Rubber Allergy (Verified 04/10/18 16:18) - Home Medications Home medications: home medication list seen and reviewed Home Medications: Cyanocobalamin [Vitamin B12 (*)] 1,000 mcg PO DAILY 05/06/17 [Last Taken 08:00] Herbals/Supplements -Info Only 1 ea PO DAILY 05/06/17 [Last Taken 04/10/18 08:00 ] Lisinopril [Zestril 40 mg (*)] 40 mg PO DAILY 05/06/17 [Last Taken 04/10/18 08: 00] Methocarbamol [Robaxin 750 mg (*)] 750 mg PO QID PRN 05/06/17 [Last Taken Unknown] Metoprolol Succinate 25 mg PO BID 05/06/17 [Last Taken 04/10/18 08:00] Multivitamins [Multivitamin (*)] 1 tab PO DAILY 05/06/17 [Last Taken 04/10/18 08 :00] Pantoprazole Sodium [Protonix 40mg (*)] 40 mg PO BID 05/06/17 [Last Taken 08:00] Polyethylene Glycol 3350 [Miralax 17 gm (*)] 17 gm PO DAILY 05/06/17 [Last Taken 04/10/18 08:00] Warfarin Sodium 5 mg PO TUTH@18 05/06/17 [Last Taken 04/06/18] traMADol [Ultram 50 mg (*)] 50 mg PO Q6 PRN 05/06/17 [Last Taken 04/10/18 16:00] Acetaminophen [Tylenol ES 500 mg (*)] 1,000 mg PO BID PRN 04/10/18 [Last Taken 04/10/18 12:00] Acetaminophen/Diphenhydramine [Acetaminophen Pm Caplet] 0.5 tab PO HS 04/10/18 [ Last Taken 04/09/18 21:00] Furosemide [Lasix 20 MG (*)] 20 mg PO DAILY 04/10/18 [Last Taken 04/10/18 10:00] Gabapentin [Neurontin 100 MG (*)] 100 mg PO TID 04/10/18 [Last Taken 04/10/18 13 :00] Sodium Cl Nasal [[place] (*)] 2 spray NS BID 04/10/18 [Last Taken 04/10/18 08:00] Warfarin Sodium [Coumadin 5MG (*)] 2.5 mg PO SUMOWEFRSA@18 04/10/18 [Last Taken 04/09/18 18:00] - NPO status NPO Status: no food or drink >8 hours NPO Since - Liquids (Date): 04/11/18 NPO Since - Liquids (Time): 23:59 NPO Since - Solids (Date): 04/11/18 NPO Since - Solids (Time): 23:59 - Anes Hx Anes Hx: no prior problems - Smoking Hx Smoking Status: Never smoked - Alcohol Use Alcohol Use: None - Family Anes Hx Family Anes Hx: none ANE Labs/Vital Signs - Labs Result Diagrams: 04/12/18 04:12 04/11/18 08:01 - Vital Signs Vital Signs: reviewed preoperatively; see RN documention for details Blood Pressure: 154/62 Heart Rate: 58 Respiratory Rate: 18 O2 Sat (%): 94 Height: 185.42 cm Weight: 72.575 kg ANE Physical Exam - Airway Neck exam: FROM Mallampati Score: Class 1 Mouth exam: normal dental/mouth exam - Pulmonary Pulmonary: no respiratory distress - Cardiovascular Cardiovascular: regular rate and rhythym - ASA Status ASA Status: III ANE Anesthesia Plan Anesthesia Plan: general endotracheal anesthesia
[2018-04-12] MEDS ORDERED: PROPOFOL 200 MG/20 ML VIAL ONE (08:08)
[2018-04-12] MEDS ORDERED: ONDANSETRON 4 MG/2 ML VIAL ONE (08:08)
[2018-04-12] MEDS ORDERED: fentaNYL 100 MCG/2 ML INJ ONE ×3 (08:08→09:39)
[2018-04-12] MEDS ORDERED: DEXAMETHASONE 4 MG/ML VIAL ONE (08:08)
[2018-04-12] MEDS ORDERED: LIDOCAINE 2% 100 MG/5 ML SYR ONE (08:08)
[2018-04-12] MEDS ORDERED: ROCURONIUM 50 MG/5 ML VIAL ONE (08:09)
[2018-04-12] MEDS ORDERED: ePHEDrine SULFATE 25 MG/5 ML SYR ONE (08:28)
--- NOTE | 2018-04-12 08:29 | PDMN ---
Medical Necessity Medical necessity: Change to IP, as of 04/11/18, per & [facility]; los >2 mn for ongoing management of LLE hematoma w/episodic hypotension; requiring further monitoring, surgical intervention w/possible wound vac placement, IV abx, pain management & therapies; comorbid advanced age , afib on ac
[2018-04-12] MEDS ORDERED: HYDROCODONE/APAP 5/325 TAB PO PRN (09:17)
[2018-04-12] MEDS ORDERED: oxyCODONE IR 5 MG TAB PO PRN (09:17)
[2018-04-12] MEDS ORDERED: MEPERIDINE 25 MG/0.5 ML AMP IVP PRN (09:17)
[2018-04-12] MEDS ORDERED: ONDANSETRON 4 MG/2 ML VIAL IVP PRN (09:17)
[2018-04-12] MEDS ORDERED: NALOXONE HCL 0.4 MG/ML INJ IVP PRN (09:17)
[2018-04-12] MEDS ORDERED: DEXAMETHASONE 4 MG/ML VIAL IVP PRN (09:17)
[2018-04-12] MEDS ORDERED: LABETALOL HCL 5 MG/ML 20 ML MDV IVP PRN (09:17)
--- NOTE | 2018-04-12 09:18 | POSTANESTH ---
Post Anesthetic Evaluation Cardiovascular Status: Similar to Pre-Op Cond Respiratory Status: Normal, Stable, Similar to Pre-op Cond. Level of Consciousness/Mental Status: Can Participate in Eval, Mildly Sleepy, Arousable Pain Control: Adequate, Prn Tx Ordered Nausea/Vomiting Control: Adequate, Prn Tx Ordered Complications Possibly Related to Anesthesia: None Noted
--- NOTE | 2018-04-12 09:18 | POSTOPPROG ---
Post Op Note Date of Operation: 04/12/18 Surgeon: Luz Elena Campbell Actuarial Science Professor: vidal Anesthesiologist: sobia Anesthesia: GET(General Endotracheal) Pre-op Diagnosis: traumatic hematoma LLE Post-op Diagnosis: same Indication: 82 yo on anticoagulation with traumatic hematoma LLE Procedure: debride skin soft tissue adipose LLE Findings: [id number] cm Inf/Abcess present in the surg proc area at time of surgery?: Yes Depth: Superfical (Skin SQ) EBL: 50-100 Drains: Wound Vac Specimen(s): none
[2018-04-12] MEDS ORDERED: HYDROmorphONE/DILAUDID 2 MG/ML INJ ONE (09:24)
--- NOTE | 2018-04-12 09:25 | HOSPPROG ---
Hospitalist Progress Note Assessment/Plan: 82 yo F with PMH of a fib on AC presenting with large graham hematoma and episodes of hypotension in ER 1. Left lower leg hematoma: Due to local trauma. - S/p debridement and clot evacuation today by Dr Campbell - Wound vac now in place - Continue empiric cefazolin, can likely stop tomorrow - Pain control with tramadol, norco PRN - PT/OT - Monitor H/H 2. Episodic hypotension: Likely vagal reaction to blood loss. Now hypertensive. - Resumed home BP meds 3. Atrial fibrillation: - Holding coumadin, monitor INR 4. Left hip pain: Related to scoliosis. Pain mgmt as above. Code: full Dispo: Remain inpatient. Possibly will need SNF with wound vac Subjective: Surgery this AM by Dr Campbell. Removed about 200ml of old clot. Wound vac now in place. Objective: Vital Signs Temp Pulse Resp BP Pulse Ox 36.8 C 58 L 18 154/62 H 94 04/12/18 08:04 04/12/18 08:04 04/12/18 08:04 04/12/18 08:04 04/12/18 08:04 Laboratory Results 04/12/18 04:12 04/11/18 04/12/18 04/13/18 05:59 05:59 05:59 Intake Total 1255 Output Total 1000 Balance 255 PT 23.5 SEC (12.0-15.0) H 04/12/18 04:12 INR 2.09 (0.83-1.16) H 04/12/18 04:12 - Physical Exam Constitutional: no apparent distress, appears nourished, not in pain Eyes: PERRL, anicteric sclera, EOMI Ears, Nose, Mouth, Throat: moist mucous membranes, hearing normal, ears appear normal, no oral mucosal ulcers Cardiovascular: regular rate and rhythym, no murmur, rub, or gallop, edema (BLE) Respiratory: no respiratory distress, no rales or rhonchi, clear to auscultation Gastrointestinal: normoactive bowel sounds, soft, non-tender abdomen, no palpable masses Genitourinary: no bladder fullness, no bladder tenderness, no renal bruits Skin: other (LLE wound vac in place) Musculoskeletal: full muscle strength Neurologic: AAOx3 Psychiatric: interacting appropriately ICD10 Worksheet Patient Problems: Problems Problem Status Onset Bleeding on Coumadin Acute Traumatic hematoma of left lower leg Acute Gastric outlet obstruction Acute
[2018-04-12] MEDS: fentaNYL 100 MCG/2 ML INJ IVP PRN ×3 (09:26→10:11)
[2018-04-12] MEDS: HYDROmorphONE/DILAUDID 2 MG/ML INJ IVP PRN ×3 (09:27→10:11)
[2018-04-12] MEDS: GABAPENTIN 100 MG CAP PO SCH ×3 (09:39→21:18)
--- NOTE | 2018-04-12 10:05 | GOP ---
[f rep st] OPERATIVE REPORT DATE OF OPERATION: 04/12/2018 SURGEON: Luz Elena Campbell MD [employer] SALESPERSON: COOKIE Crystal. ANESTHESIA: General. ANESTHESIOLOGIST: Yuan Love MD. PREOPERATIVE DIAGNOSIS: Traumatic hematoma, left lower extremity. POSTOPERATIVE DIAGNOSIS: Traumatic hematoma, left lower extremity. PROCEDURE PERFORMED: Debridement skin, soft tissue, adipose tissue to the level of fascia measuring 17 x 12 x 0.5 cm. FINDINGS: Large hematoma with devitalized skin. SPECIMENS: None. ESTIMATED BLOOD LOSS: 10 cc of new blood. INDICATIONS: The patient is an 82-year-old woman on warfarin, she developed a hematoma on her left lower extremity. DESCRIPTION OF PROCEDURE: Patient was brought into the operating room, placed supine on the table, and general anesthesia was administered. Her leg was prepped and draped in the usual sterile fashion. I used electrocautery to excise the devitalized skin and encountered massive amounts of old hematoma. Once I evacuated the hematoma, which was about 200 cc of old clotted blood, I then used the Misonix to debride the remaining hematoma away from the adipose tissue. Some adipose tissue was not viable which was debrided. There was fascia exposed in a few areas. The wound measured 17 x 12 x 0.5 cm. A VeraFlo wound VAC was placed. Hemostasis was achieved. She was awakened in the operating room, extubated, transferred to PACU in stable condition. /[id number]/MODL MTDD
[2018-04-12] MEDS: POLYETHYLENE GLYCOL 3350 17 GM PKT PO SCH (10:43)
[2018-04-12] MEDS: FUROSEMIDE 20 MG TAB PO SCH (10:45)
[2018-04-12] MEDS: PANTOPRAZOLE SODIUM 40 MG TAB PO SCH ×2 (10:46→21:18)
[2018-04-12] MEDS: METOPROLOL SUCCINATE XR 25 MG TAB PO SCH ×2 (10:46→21:18)
[2018-04-12] MEDS: SODIUM CL NASAL 45 ML BTL NS SCH ×2 (10:47→21:18)
[2018-04-12] MEDS: ACETAMINOPHEN 325 MG TAB PO PRN (16:18)
[2018-04-12] MEDS: traMADol 50 MG TAB PO PRN (21:18)
[2018-04-13] MEDS: traMADol 50 MG TAB PO PRN (04:45)
[2018-04-13 05:19] LABS: INR 1.48 (0.83-1.16); PROTIME(PATIENT) 18.1 SEC (12.0-15.0)
[2018-04-13] MEDS: ACETAMINOPHEN 325 MG TAB PO PRN ×2 (09:10→14:46)
[2018-04-13] MEDS: POLYETHYLENE GLYCOL 3350 17 GM PKT PO SCH (09:15)
[2018-04-13] MEDS: SODIUM CL NASAL 45 ML BTL NS SCH ×2 (10:12→20:33)
[2018-04-13] MEDS: METOPROLOL SUCCINATE XR 25 MG TAB PO SCH ×2 (10:12→20:30)
[2018-04-13] MEDS: FUROSEMIDE 20 MG TAB PO SCH (10:13)
[2018-04-13] MEDS: GABAPENTIN 100 MG CAP PO SCH ×3 (10:13→20:31)
[2018-04-13] MEDS: PANTOPRAZOLE SODIUM 40 MG TAB PO SCH ×2 (10:13→20:30)
--- NOTE | 2018-04-13 12:20 | SOAPPROG ---
SOAP Progress Note Assessment/Plan: Assessment/Plan: 82 year old female s/p LLE hematoma debridement POD #1 Can restart anticoagulation Wound vac output serosanguineous Able to use bedside commode with slide board Will likely need snf S: tweaked right knee yesterday during therapy, quite painful today. O: Pleasant, laying in bed, NAD No increased WOB Abdomen non distended wound vac on LLE, some bruising extends lateral knee and thigh, dorsal foot Plan: 04/13/18 12:12 04/13/18 14:53 Objective: Vital Signs Temp Pulse Resp BP Pulse Ox 37.3 C 62 16 142/80 H 96 04/13/18 09:06 04/13/18 10:12 04/13/18 09:06 04/13/18 10:12 04/13/18 09:06 Laboratory Results 04/13/18 04:20 04/12/18 04/13/18 04/14/18 05:59 05:59 05:59 Intake Total 1255 1432.5 Output Total 1000 780 Balance 255 652.5 PT 18.1 SEC (12.0-15.0) H 04/13/18 04:20 INR 1.48 (0.83-1.16) H 04/13/18 04:20 ICD10 Worksheet Patient Problems: Problems Problem Status Onset Bleeding on Coumadin Acute Traumatic hematoma of left lower leg Acute Gastric outlet obstruction Acute
--- NOTE | 2018-04-13 15:02 | ASMTCMCOM ---
CM Note CM Note Notes: Pts case discussed in tx rounds. Therapies are recommending SNF. CM met w/ pt for dispo planning. CM provided pt w/ senior blue book. Pt would like referrals sent to [facility]. Referrals sent. CM completed non triggering PASRR. CM to follow. Plan: SNF Date Signed: 04/13/2018 03:01 PM Electronically Signed By:LYUDMILA Calle
--- NOTE | 2018-04-13 18:00 | HOSPPROG ---
Hospitalist Progress Note Assessment/Plan: 82 yo F with PMH of a fib on AC presenting with large graham hematoma and episodes of hypotension in ER 1. Left lower leg hematoma: Due to local trauma. - S/p debridement and clot evacuation yesterday by Dr Campbell - Wound vac now in place - stop empiric ancef - Pain control with tramadol, norco PRN - PT/OT - Monitor H/H 2. Episodic hypotension: Likely vagal reaction to blood loss. Now hypertensive. - Resumed home BP meds 3. Atrial fibrillation: -surgery okay with restarting coumadin. 4. Left hip pain: Related to scoliosis. Pain mgmt as above. PPX- No SCDs, heparin Fluids- po Lytes- WNL Nutrition- regular Cor- Full Dispo- inpaitent for large leg hematoma. Will likely need snf in likely 1-2 days Subjective: feels fine. Objective: Vital Signs Temp Pulse Resp BP Pulse Ox 36.9 C 79 18 150/70 H 95 04/13/18 16:36 04/13/18 16:36 04/13/18 16:36 04/13/18 16:36 04/13/18 16:36 Laboratory Results 04/13/18 04:20 04/12/18 04/13/18 04/14/18 05:59 05:59 05:59 Intake Total 1255 1432.5 1050 Output Total 0402 552 5807 Balance 255 652.5 -700 PT 18.1 SEC (12.0-15.0) H 04/13/18 04:20 INR 1.48 (0.83-1.16) H 04/13/18 04:20 - Physical Exam Constitutional: no apparent distress, appears nourished, not in pain Eyes: PERRL, anicteric sclera, EOMI Ears, Nose, Mouth, Throat: moist mucous membranes, hearing normal, ears appear normal, no oral mucosal ulcers Cardiovascular: regular rate and rhythym, no murmur, rub, or gallop Respiratory: no respiratory distress, no rales or rhonchi, clear to auscultation Gastrointestinal: normoactive bowel sounds, soft, non-tender abdomen, no palpable masses Genitourinary: no bladder fullness, no bladder tenderness, no renal bruits Skin: no rashes or abrasions, no fluctuance, no induration Musculoskeletal: generalized weakness (left leg wound vac, with serosanguinous drainage), other Neurologic: AAOx3, sensation intact bilaterally Psychiatric: interacting appropriately, not anxious, not encephalopathic, thought process linear Lymph, Heme, Immunologic: no cervical LAD, no supraclavicular LAD ICD10 Worksheet Patient Problems: Problems Problem Status Onset Bleeding on Coumadin Acute Traumatic hematoma of left lower leg Acute Gastric outlet obstruction Acute
[2018-04-13] MEDS ORDERED: WARFARIN SODIUM 5 MG TAB PO SCH (18:15)
[2018-04-13] MEDS: HEPARIN 5,000 UNIT/0.5 ML INJ SC SCH (20:31)
[2018-04-13] MEDS: HYDROCODONE/APAP 5/325 TAB PO PRN (22:20)
[2018-04-14 04:45] LABS: PLATELET COUNT 202 10^3/uL (150-400)
[2018-04-14 04:52] LABS: INR 1.21 (0.83-1.16); PROTIME(PATIENT) 15.5 SEC (12.0-15.0)
[2018-04-14] MEDS: HEPARIN 5,000 UNIT/0.5 ML INJ SC SCH ×3 (06:01→22:45)
[2018-04-14] MEDS: traMADol 50 MG TAB PO PRN (06:03)
[2018-04-14] MEDS: GABAPENTIN 100 MG CAP PO SCH ×3 (07:35→22:45)
[2018-04-14] MEDS: PANTOPRAZOLE SODIUM 40 MG TAB PO SCH ×2 (07:35→22:44)
[2018-04-14] MEDS: POLYETHYLENE GLYCOL 3350 17 GM PKT PO SCH (09:41)
[2018-04-14] MEDS: FUROSEMIDE 20 MG TAB PO SCH (09:41)
[2018-04-14] MEDS: METOPROLOL SUCCINATE XR 25 MG TAB PO SCH ×2 (09:41→22:44)
[2018-04-14] MEDS: SODIUM CL NASAL 45 ML BTL NS SCH ×2 (09:41→22:46)
[2018-04-14] MEDS: HYDROCODONE/APAP 5/325 TAB PO PRN ×3 (10:22→22:44)
--- NOTE | 2018-04-14 12:35 | ASMTCMCOM ---
CM Note CM Note Notes: Pts case discussed in tx rounds. Miguel Angel from [facility] stopped by and spoke w/ pt. CM met w/ pt for dispo planning. Pt has chosen [facility]. CM provided [facility] w/ wound measurements for wound vac. [facility] will order wound vac. CM to follow. Plan: [facility] SNF Date Signed: 04/14/2018 12:34 PM Electronically Signed By:LYUDMILA Calle
--- NOTE | 2018-04-14 13:28 | SOAPPROG ---
SOAP Progress Note Assessment/Plan: Assessment/Plan: 82yo F POD#2 s/p LLE hematoma debridement Restarted anticoagulation without bleeding issues Wound vac change MWF Appreciate hospitalist management of comorbidities Dispo: to SNF. Will f/u as outpatient. Will need STSG at later date. Additionally seen by Dr. Campbell. S: no issues with LLE wound. bruising in L foot worse today O: laying in bed, comfortable, NAD No increased WOB Palpable DP and PT pulse LLE Dressings in place. Ecchymosis extends to foot. no erythema 04/14/18 13:28 Objective: Vital Signs Temp Pulse Resp BP Pulse Ox 36.7 C 80 20 106/65 96 04/14/18 11:03 04/14/18 11:03 04/14/18 11:03 04/14/18 11:03 04/14/18 11:03 Laboratory Results 04/14/18 04:12 04/14/18 04:12 04/13/18 04/14/18 04/15/18 05:59 05:59 05:59 Intake Total 1432.5 1550 Output Total 780 3300 Balance 652.5 -1750 PT 15.5 SEC (12.0-15.0) H 04/14/18 04:12 INR 1.21 (0.83-1.16) H 04/14/18 04:12 ICD10 Worksheet Patient Problems: Problems Problem Status Onset Bleeding on Coumadin Acute Traumatic hematoma of left lower leg Acute Gastric outlet obstruction Acute
--- NOTE | 2018-04-14 16:50 | WOCRNPDOC ---
JACY Advanced Assessment Note - Skin Integrity Problem, Advanced Assess Left Lower Leg Unknown Dressing Type: Wound Vac (VeraFlo) Dressing Description: Clean/Dry, Intact Closure Description: Not Approximated Exudate Amount: Scant Exudate Color: Reddish/Yellow Exudate Characteristic(s): Serosanguinous Integumentary Issue Intervention: Dressing Changed Nanda Wound Tissue: Ecchymotic, Erythema, Intact Nanda Wound Swelling: Mild Wound Bed Color: Red, Yellow Wound Bed Constitution: Red/[place] - Non Granular Tissue (70%), Subcutaneous Fat ( 30%) Wound Edges: Attached, Well Defined Site Odor: None Site Measurement - Head-to-Toe Length X Width X Depth (cm): [id number] Skin Integrity Problem Comment: Called to bedside in AM by SHAHNAZ Dukes. Wound vac had a blockage alarm. Simple troubleshooting did not resolve and, as vac scheduled to be changed today, dressing taken down and a wet to dry placed. Dr. Campbell and Marizol LANDEROS notified. Wound bed with beefy red tissue and fat, no slough. Dr. Campbell in agreement that regular vac (not veraflo) would be appropriate for wound. This RN returned to patient's room in afternoon to place vac. Wound bed cleaned with NS and gauze. Skin prep applied to nanda-wound tissue and draped in the typical fashion. One piece of large block foam cut to fit wound bed and draped. Suction applied at -125mmHg with good seal. SHAHNAZ Dukes in room to help. Patient tolerated the procedure well. All questions answered. Wound care will round again on Tuesday.
--- NOTE | 2018-04-14 17:27 | HOSPPROG ---
Hospitalist Progress Note Assessment/Plan: 82 yo F with PMH of a fib on AC presenting with large graham hematoma and episodes of hypotension in ER 1. Left lower leg hematoma: Due to local trauma. - S/p debridement and clot evacuation yesterday by Dr Campbell - Wound vac now in place - stop empiric ancef - Pain control with tramadol, norco PRN - PT/OT - Monitor H/H 2. Episodic hypotension: Likely vagal reaction to blood loss. Now hypertensive. - Resumed home BP meds 3. Atrial fibrillation: -bakc on coumadin with no bleeding. 4. Left hip pain: Related to scoliosis. Pain mgmt as above. PPX- No SCDs, heparin Fluids- po Lytes- WNL Nutrition- regular Cor- Full Dispo- inpaitent for large leg hematoma. Will likely need snf tomorrow am. Subjective: no complaints. pain well controlled. Objective: Vital Signs Temp Pulse Resp BP Pulse Ox 36.4 C 75 21 H 136/62 H 97 04/14/18 15:01 04/14/18 15:01 04/14/18 15:01 04/14/18 15:01 04/14/18 15:01 Laboratory Results 04/14/18 04:12 04/14/18 04:12 04/13/18 04/14/18 04/15/18 05:59 05:59 05:59 Intake Total 1432.5 1550 Output Total 780 3300 Balance 652.5 -1750 PT 15.5 SEC (12.0-15.0) H 04/14/18 04:12 INR 1.21 (0.83-1.16) H 04/14/18 04:12 - Physical Exam Constitutional: no apparent distress, appears nourished, not in pain Eyes: PERRL, anicteric sclera, EOMI Ears, Nose, Mouth, Throat: moist mucous membranes, hearing normal, ears appear normal, no oral mucosal ulcers Cardiovascular: regular rate and rhythym, no murmur, rub, or gallop Respiratory: no respiratory distress, no rales or rhonchi, clear to auscultation Gastrointestinal: normoactive bowel sounds, soft, non-tender abdomen, no palpable masses Genitourinary: no bladder fullness, no bladder tenderness, no renal bruits Skin: no rashes or abrasions, no fluctuance, no induration Musculoskeletal: full muscle strength, no muscle tenderness, normal joint ROM Neurologic: AAOx3, sensation intact bilaterally Psychiatric: interacting appropriately, not anxious, not encephalopathic, thought process linear Lymph, Heme, Immunologic: no cervical LAD, no supraclavicular LAD ICD10 Worksheet Patient Problems: Problems Problem Status Onset Bleeding on Coumadin Acute Traumatic hematoma of left lower leg Acute Gastric outlet obstruction Acute
[2018-04-14] MEDS ORDERED: WARFARIN SODIUM 5 MG TAB PO SCH (18:00)
[2018-04-15] MEDS: traMADol 50 MG TAB PO PRN (06:46)
[2018-04-15] MEDS: HEPARIN 5,000 UNIT/0.5 ML INJ SC SCH ×2 (06:50→16:06)
[2018-04-15 08:19] LABS: PLATELET COUNT 201 10^3/uL (150-400)
[2018-04-15] MEDS: FUROSEMIDE 20 MG TAB PO SCH (08:39)
[2018-04-15] MEDS: POLYETHYLENE GLYCOL 3350 17 GM PKT PO SCH (08:39)
[2018-04-15] MEDS: GABAPENTIN 100 MG CAP PO SCH ×2 (08:39→16:09)
[2018-04-15] MEDS: PANTOPRAZOLE SODIUM 40 MG TAB PO SCH (08:39)
[2018-04-15] MEDS: METOPROLOL SUCCINATE XR 25 MG TAB PO SCH (08:40)
[2018-04-15 08:42] LABS: INR 1.43 (0.83-1.16); PROTIME(PATIENT) 17.6 SEC (12.0-15.0)
[2018-04-15] MEDS: SODIUM CL NASAL 45 ML BTL NS SCH (08:43)
--- NOTE | 2018-04-15 11:42 | SOAPPROG ---
SOAP Progress Note Assessment/Plan: Assessment/Plan: 82 year old female s/p LLE hematoma debridement POD #2 Wound vac output serosanguineous-continue suction Able to use bedside commode with slide board going to snf today? f/u in clinic with Dr. Campbell in one week WBAT S: right knee still painful, tolerating PT O: Pleasant, NAD, sitting in bedside chair, alert No increased WOB wound vac on LLE, extensive bruising entire foot, extends above wound-lateral knee/thigh, but much less edematous Plan: 04/13/18 12:12 04/13/18 14:53 04/15/18 11:38 04/15/18 13:39 Objective: Vital Signs Temp Pulse Resp BP Pulse Ox 36.6 C 79 17 124/60 H 94 04/15/18 08:00 04/15/18 08:00 04/15/18 08:00 04/15/18 08:00 04/15/18 08:00 Laboratory Results 04/15/18 08:16 04/15/18 08:16 04/14/18 04/15/18 04/16/18 05:59 05:59 05:59 Intake Total 1550 700 Output Total 3300 340 Balance -1750 360 PT 17.6 SEC (12.0-15.0) H 04/15/18 08:16 INR 1.43 (0.83-1.16) H 04/15/18 08:16 ICD10 Worksheet Patient Problems: Problems Problem Status Onset Bleeding on Coumadin Acute Traumatic hematoma of left lower leg Acute Gastric outlet obstruction Acute
[2018-04-15] MEDS: ACETAMINOPHEN 325 MG TAB PO PRN (12:38)
--- NOTE | 2018-04-15 14:08 | PDIAF ---
- Diagnosis Code Status: Full Code - Medication Management Additional Medication Instructions: On heparin for DVT prophylaxis but should be fine to discontinue if she is up and ambulating well and once INR at goal. Discharge Medications: electronically signed and located in the Home Medication List. - Orders Services needed: Registered Nurse, Certified Paint Line Production Supervisor, Physical Therapy, Occupational Therapy Diet Recommendation: no restrictions on diet Diet Texture: Regular Texture Diet Additional Instructions: Wound vac instructions: 1 piece large black foam Suction to -125mmHg Change wound vac Tuesday, Tuesday, Tuesday Yasmine Etienne RN, Wound Care Team - Labs/Radiology PT/INR Date: 04/16/18 (daily until above 2) - Follow Up Care Current Providers and Referrals: Luz Elena Campbell MD [Medical Doctor] - follow up in 1 week Humza Anderson MD [Primary Care Provider] - As per Instructions
--- NOTE | 2018-04-15 14:48 | ASMTDCNOTE ---
Case Management Discharge Discharge Order Complete? Answers: Yes Patient to Obtain Answers: Other Notes: SNF Medications Transportation Arranged Answers: Other Notes: [facility] Transport will Pick (Date 04/15/2018 04:30 PM & Time) Faxed Final Orders Answers: Yes Agency/Facility Transfer Answers: Yes Report Printed & Faxed to Receiving Agency Family Notified Answers: Yes Notes: Pt called son Discharge Comments Notes: Received word from [facility] that pt's wound vac had arrived. Pt to be picked up by Radha Silva at 16:30. RN given number for RN to RN report. No further CM needs noted at this time. CM available should needs change. Date Signed: 04/15/2018 02:47 PM Electronically Signed By:Kahtryn Verduzco
[2018-04-15 15:39] VITALS: BP 174/98
--- NOTE | 2018-04-15 16:42 | ASDISCHSUM ---
Discharge Information Plan Status:SNF Medically Cleared to Leave:04/14/2018 Discharge Date:04/15/2018 04:20 PM CM D/C Disposition:[facility] Facility ADT D/C Disposition:[facility] Facility Projected Discharge Date:04/15/2018 02:00 PM Transportation at D/C:Wheelchair Van Discharge Delay Reason: Follow-Up Date:04/15/2018 02:00 PM Discharge Slot: Final Diagnosis:Leg hematoma wound Placement Information Referral Type:*Halfway/SNF Referral ID:[id number] Provider Name:[facility] Address 1:[address] Address 2: City:[place] Selection Factors: State:[place] Patient Contact Information Contact Name:JUNITODANILOVANESSA Relationship:Son Address:[address] Work Phone: [facility]:MART[place] Alternate Phone: [facility]/Zip Code:[place] [address] Email: Financial Information Financial Class:Medicare Primary Plan Desc:MEDICARE INPATIENT Primary Plan Number:[id number] Secondary Plan Desc:AARP/MDR SUPPLEMENT Secondary Plan Number:[id number] Assessment Information [facility] CM Progress Note CM Note CM Note Notes: Pt's case discussed in treatment rounds. Pt in with lower leg hematoma after running into a car door. Dr Campbell to take Pt to surgery and will possibly have a wound Vac. PT and OT have been ordered. Needs are TBD at this time. CM to follow. Plan: TBD Date Signed: 04/11/2018 12:48 PM Electronically Signed By:LYUDMILA Calle LACE CRISSY Length of stay for Answers: 4-6 days current admission Acuity / Level of Answers: Yes Care: Did the patient have an inpatient admission? Comorbidities - select Answers: Other Notes: AFib; HTN all that apply # of Emergency department Answers: 1-2 visits in the last 6 months Score: 9 Date Signed: 04/15/2018 04:40 PM Electronically Signed By:Kathryn Verduzco [facility] Progress Note CM Note CM Note Notes: Pts case discussed in tx rounds. Therapies are recommending SNF. CM met w/ pt for dispo planning. CM provided pt w/ senior blue book. Pt would like referrals sent to [facility] and [facility]. Referrals sent. CM completed non triggering PASRR. CM to follow. Plan: SNF Date Signed: 04/13/2018 03:01 PM Electronically Signed By:LYUDMILA Calle [facility] SHEBA Progress Note CM Note CM Note Notes: Pts case discussed in tx rounds. Miguel Angel from [facility] stopped by and spoke w/ pt. CM met w/ pt for dispo planning. Pt has chosen [facility]. CM provided [facility] w/ wound measurements for wound vac. [facility] will order wound vac. CM to follow. Plan: [facility] SNF Date Signed: 04/14/2018 12:34 PM Electronically Signed By:LYUDMILA Calle Case Management Discharge Plan Note Case Management Discharge Discharge Order Complete? Answers: Yes Patient to Obtain Answers: Other Notes: SNF Medications Transportation Arranged Answers: Other Notes: [facility] will Pick (Date 04/15/2018 04:30 PM & Time) Faxed Final Orders Answers: Yes Agency/Facility Transfer Answers: Yes Report Printed & Faxed to Receiving Agency Family Notified Answers: Yes Notes: Pt called son Discharge Comments Notes: Received word from [facility] that pt's wound vac had arrived. Pt to be picked up by Radha Silva at 16:30. RN given number for RN to RN report. No further CM needs noted at this time. CM available should needs change. Date Signed: 04/15/2018 02:47 PM Electronically Signed By:Kathryn Verduzco Intervention Information Intervention Type:*PARK-Signed Date of Service:04/11/2018 02:03 PM Patient Type:Observation Staff Member:Anel Davis Hours: Discipline: Severity: Comment: Intervention Type:*IM-Signed Date of Service:04/15/2018 02:48 PM Patient Type:Inpatient Staff Member:Kathryn Verduzco Hours: Discipline:Sales Intern Severity: Comment:
--- NOTE | 2018-04-15 17:23 | PDDCSUM ---
Discharge Summary Discharge Summary: Discharge diagnosis Left leg hematoma Hypotension AFib Hypertension GERD Osteoarthritis Patient is an 82-year-old female with past medical history of AFib on a on anticoagulation who presented with a large left graham hematoma and episode of hypotension. General surgery was consulted who took the patient to the OR for an I and D and wound VAC placement. She tolerated the procedure well and with IV fluids her blood pressure rebounded. She was followed by surgery who felt the wound was healing but in the future would she may need a graft. She was restarted on anticoagulation without any evidence of significant bleeding. She was discharged to a [facility] facility to complete rehabilitation along with further follow-up with General surgery for management of her wound VAC and possible further surgery. Discharge disposition [facility] facility Condition at discharge Good I spent over 30 min on the discharge of this patient
[2018-04-15] MEDS ORDERED: WARFARIN SODIUM 2.5 MG TAB PO SCH (18:00)
--- NOTE | 2018-04-19 09:02 | PQFORM ---
PHYSICIAN QUERY FORM Needs Your Response This query form is being sent to you to assure this patient record is coded properly. Please respond to the question below: TOP STOP ATTACHER QUESTION: Dr Campbell Please clarify this patients debridement to be Excisional __ Non- Excisional __ Other (Please specify _I use MISONIX which is a contact ultrasound debrider. I debrided skin and down to adipose tissue to I consider this excisional __ Unable to determine Thank You Rosanna DAN Insurance Coordinator INSTRUCTIONS FOR RESPONSE: Answer question by clicking on the "Edit Document" button. Move cursor to area below the stars. When complete, hit "Save." Click on the "Sign" button, then click "Sign" again. Type in your PIN and hit "Enter." MTDD
== END 2018-04-15 16:20 | DRG 605 ==
LOC: CED 16:08 → CEDHOLD 17:37 → F2W 23:33 → OBSVTOIN 04-11 16:07
PROVIDERS: ADMIT Internal Medicine; ATTEND Internal Medicine
PROC: 0JCP0ZZ Extirpation of Matter from Left Lower Leg Subcutaneous Tissue and Fascia, Open Approach (ICD-10-PCS; principal; 2018-04-12 08:15)
PROC: 2W1MX6Z Compression of Left Lower Extremity using Pressure Dressing (ICD-10-PCS; principal; 2018-04-12 08:15)
DX: S80.12XA Contusion of left lower leg, initial encounter (principal); W22.8XXA Striking against or struck by other objects, initial encounter; I95.9 Hypotension, unspecified; I48.91 Unspecified atrial fibrillation; M19.90 Unspecified osteoarthritis, unspecified site; I10 Essential (primary) hypertension; K21.9 Gastro-esophageal reflux disease without esophagitis; Z79.01 Long term (current) use of anticoagulants; Z96.642 Presence of left artificial hip joint
CPT/HCPCS: 73590-PO; 80048-ER; 97110-GP; 97161-GP; 97165-GO; 97530-GP; 97535-GO; G0378; J0171; J0690; J1100; J1170; J1644; J2001; J2405; J2704; J3010

== ENCOUNTER 2018-05-11 09:25 | Observation (INO) | payer OTHER, MEDICARE ==
[2018-05-11] MEDS ORDERED: LR 1,000 ML IV ONE (09:49)
[2018-05-11] MEDS ORDERED: ceFAZolin 2 GM/DEXTROSE 100 ML IV ONE (09:49)
[2018-05-11] MEDS ORDERED: EPINEPHrine 1 MG/ML INJ ONE (10:14)
[2018-05-11] MEDS ORDERED: MINERAL OIL 10 ML VIAL ONE (10:14)
[2018-05-11] MEDS ORDERED: THROMBIN (BOVINE) 20,000 UNIT SPRAY TP ONE (10:14)
[2018-05-11 10:30] LABS: PLATELET COUNT 410 10^3/uL (150-400)
--- NOTE | 2018-05-11 10:50 | PDHPUP ---
History & Physical Update H&P update statement: This history and physical update is based on an assessment of the patient which was completed after admission or registration (within 24 hours), but prior to the surgery/procedure. H&P update: H&P reviewed & patient examined, changes noted (cellulitus, improving on antibiotics)
[2018-05-11 10:54] LABS: INR 1.11 (0.83-1.16); PROTIME(PATIENT) 13.9 SEC (12.0-15.0)
--- NOTE | 2018-05-11 10:57 | PDANEPAE ---
ANE History of Present Illness left lower leg wound ANE Past Medical History - Cardiovascular History Hx Hypertension: Yes Hx Arrhythmias: Yes Hx Chest Pain: No Hx Coronary Artery / Peripheral Vascular Disease: No Hx CHF / Valvular Disease: No Hx Palpitations: No Cardiovascular History Comment: hx of afib x1 episode. followed by [facility] now - Pulmonary History Hx COPD: No Hx Asthma/Reactive Airway Disease: No Hx Recent Upper Respiratory Infection: No Hx Oxygen in Use at Home: No Hx Sleep Apnea: No Sleep Apnea Screening Result - Last Documented: Negative - Neurologic History Hx Cerebrovascular Accident: No Hx Seizures: No Hx Dementia: No Neurologic History Comment: spinal stenosis. 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 GERD. hx of richard fundoplication - Other Health History Other Health History: wears glasses. dental bridges and crowns. wound vac to LLE s/p hematoma from hitting it with car door - Chronic Pain History Chronic Pain: Yes (toes, back, knee) - Surgical History Prior Surgeries: 04/12/18 i&d, wound vac placed and evacuation of hematoma with Adrian. appy 1957. 1975. richard fundoplication 04/2015. left ESPERANZA . T&A 1941 ANE Review of Systems Review of systems is: negative Review of Systems: - Exercise capacity Exercise capacity: >=4 METS METS (RN): 3 METS ANE Patient History - Allergies Allergies/Adverse Reactions: codeine Allergy (Verified 05/10/18 15:24) pass out Latex, Natural Rubber Allergy (Verified 05/10/18 15:24) Rash levofloxacin [From Levaquin] Allergy (Verified 05/10/18 15:16) Edema of Extremities - Home Medications Home medications: home medication list seen and reviewed Home Medications: Cyanocobalamin [Vitamin B12 (*)] 05/06/17 [Last Taken 05/10/18] Herbals/Supplements -Info Only 05/06/17 [Last Taken 05/10/18] Lisinopril [Zestril 40 mg (*)] 05/06/17 [Last Taken 05/10/18] Methocarbamol [Robaxin 750 mg (*)] QID PRN 05/06/17 [Last Taken 05/09/18] Metoprolol Succinate BID 05/06/17 [Last Taken 05/10/18] Multivitamins [Multivitamin (*)] 05/06/17 [Last Taken 05/10/18] Pantoprazole Sodium [Protonix 40mg (*)] BID 05/06/17 [Last Taken 05/10/18] Polyethylene Glycol 3350 [Miralax 17 gm (*)] 05/06/17 [Last Taken 05/10/18] Warfarin Sodium 05/06/17 [Last Taken 05/06/18] traMADol [Ultram 50 mg (*)] PRN 05/06/17 [Last Taken 05/10/18] Acetaminophen [Tylenol ES 500 mg (*)] PRN 04/10/18 [Last Taken 05/07/18] Gabapentin [Neurontin 100 MG (*)] TID 04/10/18 [Last Taken 05/10/18] Sodium Cl Nasal [[place]le Amidon (*)] BID 04/10/18 [Last Taken 05/10/18] Augmentin 1000MG ER Tablet (*) 05/10/18 [Last Taken 05/10/18] Doxycycline Calcium 05/10/18 [Last Taken 05/10/18] - NPO status NPO Status: no food or drink >8 hours NPO Since - Liquids (Date): 05/10/18 NPO Since - Liquids (Time): 22:00 NPO Since - Solids (Date): 05/10/18 NPO Since - Solids (Time): 20:00 - Anes Hx Anes Hx: no prior problems - Smoking Hx Smoking Status: Never smoked - Family Anes Hx Family Hx Anesthesia Complications: none ANE Labs/Vital Signs - Labs Result Diagrams: 05/11/18 10:19 - Vital Signs Vital Signs: reviewed preoperatively; see RN documention for details Blood Pressure: 147/77 Heart Rate: 79 Respiratory Rate: 18 O2 Sat (%): 93 Height: 185.42 cm Weight: 72.575 kg ANE Physical Exam - Airway Neck exam: FROM Mallampati Score: Class 2 - Pulmonary Pulmonary: no respiratory distress, clear to auscultation - Cardiovascular Cardiovascular: regular rate and rhythym - ASA Status ASA Status: III ANE Anesthesia Plan Anesthesia Plan: general endotracheal anesthesia
[2018-05-11] MEDS ORDERED: fentaNYL 100 MCG/2 ML INJ ONE ×2 (11:02→12:28)
[2018-05-11] MEDS ORDERED: PROPOFOL 200 MG/20 ML VIAL ONE (11:02)
[2018-05-11] MEDS ORDERED: ROCURONIUM 50 MG/5 ML VIAL ONE (11:03)
[2018-05-11] MEDS ORDERED: LIDOCAINE 2% 5 ML SDV ONE (11:05)
[2018-05-11] MEDS ORDERED: ePHEDrine SULFATE 25 MG/5 ML SYR ONE (11:26)
[2018-05-11] MEDS ORDERED: PHENYLEPHRINE HCL 100 MCG/ML SYR ONE (11:33)
[2018-05-11] MEDS ORDERED: DEXAMETHASONE 4 MG/ML VIAL ONE (11:45)
[2018-05-11] MEDS ORDERED: ONDANSETRON 4 MG/2 ML VIAL ONE (11:45)
[2018-05-11] MEDS ORDERED: LABETALOL HCL 5 MG/ML 20 ML MDV IVP PRN (12:00)
[2018-05-11] MEDS ORDERED: PHENYLEPHRINE HCL 100 MCG/ML SYR IVP PRN (12:00)
[2018-05-11] MEDS ORDERED: ALBUTEROL 3 ML DEYVIAL IH PRN (12:00)
[2018-05-11] MEDS ORDERED: DEXAMETHASONE 4 MG/ML VIAL IVP PRN (12:00)
[2018-05-11] MEDS ORDERED: oxyCODONE IR 5 MG TAB PO PRN (12:00)
[2018-05-11] MEDS ORDERED: PROMETHAZINE HCL 25 MG/ML INJ IVP PRN (12:00)
[2018-05-11] MEDS ORDERED: LR 500 ML IV PRN (12:00)
[2018-05-11] MEDS ORDERED: MEPERIDINE 25 MG/0.5 ML AMP IVP PRN (12:00)
[2018-05-11] MEDS ORDERED: ACETAMINOPHEN 500 MG TAB PO PRN (12:00)
[2018-05-11] MEDS ORDERED: NALOXONE HCL 0.4 MG/ML INJ IVP PRN (12:00)
[2018-05-11] MEDS ORDERED: ONDANSETRON 4 MG/2 ML VIAL IVP PRN (12:00)
[2018-05-11] MEDS ORDERED: METOCLOPRAMIDE 10 MG/2 ML VIAL IVP PRN (12:00)
[2018-05-11] MEDS ORDERED: SUGAMMADEX SODIUM 200 MG/2 ML VIAL IVP ONE (12:06)
[2018-05-11] MEDS ORDERED: traMADol 50 MG TAB PO PRN (12:17)
--- NOTE | 2018-05-11 12:19 | POSTOPPROG ---
Post Op Note Date of Operation: 05/11/18 Surgeon: Luz Elena Campbell Anesthesiologist: johan Anesthesia: GET(General Endotracheal) Pre-op Diagnosis: traumatic hematoma Post-op Diagnosis: same Indication: 82 with large hematoma on leg Procedure: debride s st 16.8x14.7x0.3 LLE Inf/Abcess present in the surg proc area at time of surgery?: Yes Depth: Superfical (Skin SQ) Drains: Wound Vac
[2018-05-11] MEDS ORDERED: HYDROmorphONE/DILAUDID 2 MG/ML INJ ONE (12:28)
[2018-05-11] MEDS: HYDROmorphONE/DILAUDID 2 MG/ML INJ IVP PRN ×3 (12:29→13:18)
[2018-05-11] MEDS: fentaNYL 100 MCG/2 ML INJ IVP PRN ×2 (12:29→12:43)
--- NOTE | 2018-05-11 12:49 | GOP ---
[f rep st] OPERATIVE REPORT DATE OF OPERATION: 05/11/2018 SURGEON: Luz Elena Campbell MD ANESTHESIA: General. ANESTHESIOLOGIST: Sae Hernandez PREOPERATIVE DIAGNOSIS: Traumatic left lower extremity wound. POSTOPERATIVE DIAGNOSIS: Traumatic left lower extremity wound. PROCEDURE PERFORMED: Debridement skin, soft tissue, and a 16.8 x 14.7 x 0.3 cm and split-thickness s kin graft. FINDINGS: Wound bed was extremely healthy, 16.8 x 14.7 x 0.3 cm. Surrounding cellulitis that is imp roving. SPECIMENS: None. ESTIMATED BLOOD LOSS: 10 cc. INDICATIONS: Kristina Rick is an 82-year-old woman who I met approximately 1 month ago with a large t raumatic hematoma to her left lower extremity. We went to the operating room, and I performed debrid ement of the skin, soft tissue. She has had a wound VAC in place. There is now healthy granulation tissue. She does have cellulitis, and preoperatively I counseled her that the skin graft might not t zuly and that we could postpone skin grafting. She elected to proceed. DESCRIPTION OF PROCEDURE: Patient was brought into the operating room, placed supine on the table, a nd general anesthesia was administered. Her left leg was prepped and draped in the usual sterile fas hion. I used a knife to debride the bioburden from the lower extremity wound. It measured 16.8 x 14 .7 x 0.3 cm. I used a 4-inch plain on the Binh dermatome at 1/12,000 of an inch and took a split-t hickness skin graft from her left upper thigh. Epinephrine-soaked sponge placed on the thigh. The g raft was hand pie crusted and stapled into place on the wound. I took a second piece of skin in a si milar fashion. Adaptic Touch and a wound VAC were placed on the left lower extremity. Hemostasis ac hieved on the left thigh with electrocautery. Mepilex Transfer, ABD, and dressing were applied. She was awakened in the operating room, extubated, transferred to PACU in stable condition. /[id number]/MODL
[2018-05-11] MEDS: GABAPENTIN 100 MG CAP PO SCH ×2 (16:00→22:33)
[2018-05-11] MEDS ORDERED: ACETAMINOPHEN 325 MG TAB PO PRN (16:03)
[2018-05-11] MEDS ORDERED: LIDOCAINE 4% 15 GM CREAM TP PRN (16:03)
[2018-05-11] MEDS ORDERED: METHOCARBAMOL 750 MG TAB PO PRN (16:03)
[2018-05-11] MEDS ORDERED: HYDROCODONE/APAP 5/325 TAB PO PRN (16:03)
--- NOTE | 2018-05-11 18:52 | PDCONSULT ---
Access Control Specialist Note: Infectious Diseases Consult Note Impression: 82-year-old woman with left lower extremity cellulitis complicating a chronic wound that developed secondary to traumatic hematoma. She has had improvement in her cellulitis with a short course prior to admission of doxycycline and Augmentin to will continue these 2 medications. Discussed with her with her son present at bedside the need to take doxycycline at least 2 hr before or 2 hr after dairy products or multivitamins containing magnesium, calcium, iron. Will have a low threshold to switch to potentially more reliably absorbed antibiotics as linezolid if she does not show improvement within the next 24-48 hours. 1. Left lower extremity cellulitis surrounding the distal left lower extremity wound 2. Status post left lower extremity wound debridement and skin grafting 2018 3. Status post left lower extremity hematoma evacuation 04/12/2018 4. History of traumatic hematoma to distal left lower extremity March 2018 5. History of gastroparesis secondary to Minerva fundoplication Plan: 1. Continue doxycycline 100 mg p.o. Twice daily and Augmentin 875/125 twice daily 2. Continue to visually examined the degree of erythema over the next 24-48 hours 3. Will have a low threshold to change to an alternative, potentially better absorbed antibiotics which linezolid 4. Reviewed in detail potential side effects of doxycycline to include: allergy , rash, nausea, antibiotic-associated diarrhea, Clostridioides difficile colitis , photosensitivity, heart burn, pigmented rash. 5. Reviewed in detail potential side effects of beta-lactam antibiotics to include: allergy, rash, nausea, antibiotic-associated diarrhea, Clostridioides difficile colitis. Americo Lazo MD Infectious Diseases Chief Complaint: Redness around left lower extremity wound Requesting Provider: Dr. Holloway Reason for Referral: Consultation was requested by Dr. Holloway regarding antimicrobial management. HPI: 82-year-old woman with left lower extremity cellulitis around the edges of a large wound with a wound VAC in place. She noted increased erythema around the edge of the wound VAC proximally 2 weeks prior to admission. She had been giving 2 separate 5 day courses of cephalexin is with no change in the degree of erythema. She had started doxycycline 100 mg p. O. Twice daily completing approximately 2 and half of therapy prior to admission and has taken 1 full day of Augmentin prior to admission. She notes improvement in the erythema which is ordered by photo she has on her telephone documenting the severity of erythema prior to admission. She underwent skin grafting to the left lower extremity wound earlier today with the wound bed noted to be healthy. She is recovering comfortably in her room after surgery with pain at the left thigh skin graft site but no distal left lower extremity pain. Chronology of Present Illness: Location of symptoms: Distal left lower extremity Onset of symptoms: Ongoing wound since traumatic hematoma in March 2018; increasing erythema around the wound VAC edges approximately 2 weeks prior to admission Initial signs/symptoms: Initially developed a rapidly developing distal left lower extremity hematoma after all showing a car door on her leg in March of 2018, while residing in a care facility to assist with the care wound VAC approximately 2 weeks prior to admission she developed increasing erythema around the site Associated signs/symptoms at onset: She had no fever, chills, night sweats; mild increase in pain of the left lower extremity around the wound VAC edges Changes since onset: She noted improvement in the past 2 days prior to admission Exacerbating factors: None identified Relieving factors: Changed from cephalexin to doxycycline combined with Augmentin Antibiotics since symptom onset: She had 2 5 day courses of cephalexin while at a care facility; started doxycycline approximately a day and half prior to admission and Augmentin 1 day prior to admission Change in symptoms with antibiotics: Decreased intensity of erythema of the left lower extremity Relevant PMHx/PSHx: Gastroparesis secondary to a Minerva fundoplication procedure in the distant past Reviewed [facility] medical [facility] in [facility], and [facility] Past Medical History: Gastroparesis, atrial fibrillation, hypertension Past Surgical History: Left lower extremity debridement of large hematoma 2018; left lower extremity skin grafting to wound 05/11/18; Minerva fundoplication Social History: Does not use tobacco products; Does not consume marijuana products; Drinks alcohol socially; Does not use any other drugs currently or in the past Family History: No family members with recurrent infections Allergies: Levofloxacin Medications: Reviewed in medical record and confirmed with patient. ROS: 10 organ systems reviewed; pertinent positives and negatives listed in the HPI, all other organ systems negative. Physical Exam: VS: Reviewed Gen: No acute distress; Breathing comfortably without supplemental oxygen; Able to speak in complete sentences Eyes: No conjunctival injection; No scleral icterus HENT: No gross deformities Neck: No limitation in range of motion Pulm: Audible inspiratory sounds to the bases bilaterally; No wheeze, rhonchi, or rales CV: Normal S1 and S2; Regular rate and rhythm; No murmurs, rubs, or gallops; No lower extremity edema Abd: Not distended; Normo-active bowel sounds; Soft; Non-tender Skin: Left lower extremity with wound VAC in place with the distal leg wound with surrounding erythema that blanches with palpation, left thigh skin graft sites with dressing in place not taken down MSK: Joints without erythema or edema; No gross limitation in range of motion Ext: No clubbing or cyanosis Neuro: Awake and alert Psych: Normal mood and affect Labs/Imaging: All microbiology testing (culture and non-culture) reviewed in the medical record. Personally reviewed and interpreted the images of the following radiographs: No imaging to review Medications Generic Name Dose Route Start Last Admin Trade Name Freq PRN Reason Stop Dose Admin Amoxicillin/Clavulanate Potassium 875 mg 05/11/18 21:00 Augmentin 875mg PO 06/10/18 20:59 BID ON LICENSE OF [facility] Protocol Doxycycline Hyclate 100 mg 05/11/18 21:00 Doxycycline Hyclate PO 06/10/18 20:59 BID ON LICENSE OF [facility] Protocol Discontinued Medications Generic Name Dose Route Start Last Admin Trade Name Freq PRN Reason Stop Dose Admin Cefazolin Sodium/Dextrose 100 mls @ 200 mls/hr 05/11/18 09:49 05/11/18 11:22 Ancef IV 05/11/18 10:18 100 mls ONCALL ONE Protocol Laboratory Tests 05/11/18 10:19 WBC 6.38 Hgb 9.8 L Plt Count 410 H Ongoing monitoring for antimicrobial toxicity with: CBC, BMP.
[2018-05-11] MEDS ORDERED: WARFARIN SODIUM 5 MG TAB PO SCH (21:00)
[2018-05-11] MEDS: METOPROLOL SUCCINATE XR 25 MG TAB PO SCH (22:30)
[2018-05-11] MEDS: AMOXICILLIN/CLAVULANATE POT 875/125 MG TAB PO SCH (22:30)
[2018-05-11] MEDS: DOXYCYCLINE HYCLATE 100 MG CAP/TAB PO SCH (22:31)
[2018-05-11] MEDS: SODIUM CHLORIDE 1,000 MG TAB PO SCH (22:33)
[2018-05-11] MEDS: PANTOPRAZOLE SODIUM 40 MG TAB PO SCH (22:33)
[2018-05-12] MEDS: AMOXICILLIN/CLAVULANATE POT 875/125 MG TAB PO SCH (08:02)
[2018-05-12] MEDS: DOXYCYCLINE HYCLATE 100 MG CAP/TAB PO SCH (08:03)
[2018-05-12] MEDS: GABAPENTIN 100 MG CAP PO SCH ×2 (08:03→15:14)
[2018-05-12] MEDS: PANTOPRAZOLE SODIUM 40 MG TAB PO SCH (08:09)
[2018-05-12] MEDS: SODIUM CHLORIDE 1,000 MG TAB PO SCH ×2 (08:10→15:14)
[2018-05-12] MEDS: METOPROLOL SUCCINATE XR 25 MG TAB PO SCH (08:15)
[2018-05-12] MEDS ORDERED: LISINOPRIL 40 MG TAB PO SCH (09:00)
[2018-05-12] MEDS ORDERED: LISINOPRIL 20 MG TAB PO SCH (09:00)
--- NOTE | 2018-05-12 09:05 | SOAPPROG ---
SOAP Progress Note Assessment/Plan: Assessment: POD # 1 s/p debridement and STSG LLE with wound vac placement Appreciate ID Continue Doxycyline and Augmentin Elevate Change dressing on L thigh prn. Non stick by wound and ABD Do NOT remove wound vac. Keep canister no more than 3/4 full. Keep wound vac to suction at all times. Erythema stable or slightly improved. I am comfortable with dc back to SNF unless ID would like to watch one more day S: Feeling well. Minimal pain O: Sitting in chair, CTAB RRR Less edema on leg Erythema less pronounced WV to suction Dressing on Thigh with scant drainage Plan: 05/12/18 09:02 Objective: Vital Signs Temp Pulse Resp BP Pulse Ox 36.5 C 71 16 128/85 H 96 05/12/18 07:30 05/12/18 08:15 05/12/18 07:30 05/12/18 08:15 05/12/18 04:00 Laboratory Results 05/11/18 10:19 05/11/18 05/12/18 05/13/18 05:59 05:59 05:59 Intake Total 1040 Output Total 10 Balance 1030 PT 13.9 SEC (12.0-15.0) 05/11/18 10:19 INR 1.11 (0.83-1.16) 05/11/18 10:19 ICD10 Worksheet Patient Problems: Problems Problem Status Onset Bleeding on Coumadin Acute Gastric outlet obstruction Acute Traumatic hematoma of left lower leg Acute
--- NOTE | 2018-05-12 09:11 | PDIAF ---
- Diagnosis Diagnosis: traumatic wound LLE Code Status: Full Code - Medication Management Alf Antibiotics: Augmentin and Doxycyline Alf Antibiotic Stop Date: 05/22/18 Discharge Medications: electronically signed and located in the Home Medication List. - Orders Diet Recommendation: no restrictions on diet Activity/Weight Bearing Restrictions: WBAT Additional Instructions: Elevate LLE Change dressing on Left thigh prn. I currently have mepilex transfer on wound. Can change with non stick (mepilex transfer, mepitel one, adaptic touch or vaseline gauze) and ABD Do NOT remove wound vac. Keep canister no more than 3/4 full. Keep wound vac to suction at all times. - Follow Up Care Current Providers and Referrals: Humza Anderson MD [Primary Care Provider] - Marizol Christian PA [Physician Director Corporate Compliance] - (Either 05/24 or 05/26 for wound vac removal. Will need appointment 05/31- for staple removal as well.)
--- NOTE | 2018-05-12 12:44 | PCMIDPN ---
Assessment/Plan: Assessment: 82 year old woman with left lower extremity cellulitis complicating chronic wound that developed secondary traumatic hematoma. There is improvement in the degree of erythema and extensive erythema over the past 24 hr. She is tolerating both doxycycline and Augmentin to date will continue this therapy for at least 10 total days but expect that we may extend out to 14 days depending on the rate of resolution. 1. Left lower extremity cellulitis surrounding distal left lower extremity wound 2. Status post left lower extremity wound debridement skin grafting 05/11/2018 3. Status post left lower extremity hematoma evacuation 04/12/2018 4. History of traumatic hematoma distal left lower extremity March 2018 5. History of gastroparesis secondary to Minerva fundoplication Plan: 1. Continue doxycycline 100 mg p.o. Twice daily and Augmentin 875/125 twice daily; she has already obtained the outpatient prescription in has on hand at least 7 more days 2. Will coordinate with surgery to evaluate the area of erythema on progression when she presents for wound VAC change next week 3. Reviewed in detail potential side effects of doxycycline to include: allergy , rash, nausea, antibiotic-associated diarrhea, Clostridioides difficile colitis , photosensitivity, heart burn, pigmented rash. 4. Reviewed in detail potential side effects of beta-lactam antibiotics to include: allergy, rash, nausea, antibiotic-associated diarrhea, Clostridioides difficile colitis. Americo Lazo MD Infectious Diseases 05/12/18 12:44 Subjective: No fever or chills in the past 24-hours. Tolerating oral diet with solids and liquids. No diarrhea, nausea, or other GI symptoms. No rash. Appetite improving. Ambulating without difficulty. Improved since admission but not back to baseline health. Objective: Vital Signs Temp Pulse Resp BP Pulse Ox 36.4 C 60 18 154/96 H 96 05/12/18 11:37 05/12/18 11:37 05/12/18 11:37 05/12/18 11:37 05/12/18 04:00 Laboratory Results 05/11/18 10:19 05/11/18 05/12/18 05/13/18 05:59 05:59 05:59 Intake Total 1040 Output Total 10 Balance 1030 Medications Generic Name Dose Route Start Last Admin Trade Name Freq PRN Reason Stop Dose Admin Amoxicillin/Clavulanate Potassium 875 mg 05/11/18 21:00 05/12/18 08:02 Augmentin 875mg PO 06/10/18 20:59 875 mg BID [facility] Protocol Doxycycline Hyclate 100 mg 05/11/18 21:00 05/12/18 08:03 Doxycycline Hyclate PO 06/10/18 20:59 100 mg BID [facility] Protocol Laboratory Tests 05/11/18 10:19 WBC 6.38 Hgb 9.8 L Plt Count 410 H - Physical Exam General Appearance: no apparent distress, non-toxic EENT: No scleral icterus Respiratory: No respiratory distress, No accessory muscle use Neck: full range of motion, supple Skin: other (Distal left lower extremity with erythema extending from the edge of the wound superiorly the laterally from each edges and inferiorly to involve the ankle and dorsum of the foot; this is improved over the past 24 hr; is there are no areas of induration or fluctuance within the erythematous areas) Neuro/Psych: alert, normal mood/affect, oriented x 3, No confused - Time Spent With Patient Time Spent with Patient: greater than 25 minutes (Counseling provided regarding expected progression of cellulitis surrounding the wound is wound VAC in place, expected response with combination therapy directed at both staphylococcal and streptococcal organisms, the fact that if we do not see resolution over the next week that we have a antibiotic in mind that we would switch to and potential side effects) Time Spent with Patient: Greater than 25 minutes spent on this patients care, greater than 50% of time spent counseling, educating, and coordinating care regarding the above mentioned plan. ICD10 Worksheet Patient Problems: Problems Problem Status Onset Bleeding on Coumadin Acute Gastric outlet obstruction Acute Traumatic hematoma of left lower leg Acute
[2018-05-12 12:49] VITALS: BP 145/91
--- NOTE | 2018-05-12 13:52 | ASMTLACE ---
LACE Length of stay for Answers: 1 day current admission Acuity / Level of Answers: No Care: Did the patient have an inpatient admission? Comorbidities - select Answers: Coronary Artery Disease all that apply Opioid dependence / Chronic pain Other Notes: HTN; AFib # of Emergency department Answers: 1-2 visits in the last 6 months Score: 9 Date Signed: 05/12/2018 01:51 PM Electronically Signed By:LYUDMILA Calle
--- NOTE | 2018-05-12 13:59 | ASMTCMCOM ---
SHEBA Note CM Note Notes: Pts case discussed w/ SHAHNAZ Vazquez. Pt is being d/c'd today. Pt admitted to the hospital from a planned surgery. Pt will return back to [facility]. DC orders sent. Taylor will call to give report. SHEBA spoke to Yoandy at [facility] pt will be picked up at 3PM by their own wheelchair transport. CM available for changes. Plan: [facility] Date Signed: 05/12/2018 01:58 PM Electronically Signed By:LYUDMILA Calle
--- NOTE | 2018-05-12 14:00 | ASDISCHSUM ---
Discharge Information Plan Status:SNF Medically Cleared to Leave: Discharge Date: D/C Disposition: ADT D/C Disposition:Shelter Facility Projected Discharge Date:05/13/2018 11:00 AM Transportation at D/C: Discharge Delay Reason: Follow-Up Date:05/13/2018 11:00 AM Discharge Slot: Final Diagnosis: Placement Information Referral Type:*Long Term/SNF Referral ID:[id number] Provider Name:[facility] Address 1:[address] Address 2: City:[place] Selection Factors: State:[place] Patient Contact Information Contact Name:JUNITODANILOVANESSA Relationship:Son Address:[address] Work Phone: [facility]:[employer] Alternate Phone: State/Zip Code:[place] [address] Email: Financial Information Financial Class:Medicare Primary Plan Desc:MEDICARE OUTPATIENT Primary Plan Number:[id number] Secondary Plan Desc:[employer]/MDR SUPPLEMENT Secondary Plan Number:[id number] Assessment Information LACE LACE Length of stay for Answers: 1 day current admission Acuity / Level of Answers: No Care: Did the patient have an inpatient admission? Comorbidities - select Answers: Coronary Artery Disease all that apply Opioid dependence / Chronic pain Other Notes: HTN; AFib # of Emergency department Answers: 1-2 visits in the last 6 months Score: 9 Date Signed: 05/12/2018 01:51 PM Electronically Signed By:LYUDMILA Calle [facility] CM Progress Note CM Note CM Note Notes: Pts case discussed w/ SHAHNAZ Vazquez. Pt is being d/c'd today. Pt admitted to the hospital from a planned surgery. Pt will return back to [facility]. DC orders sent. Taylor will call to give report. SHEBA spoke to Yoandy at [facility] pt will be picked up at 3PM by their own wheelchair transport. CM available for changes. Plan: [facility] Date Signed: 05/12/2018 01:58 PM Electronically Signed By:LYUDMILA Calle Intervention Information
[2018-05-12] MEDS ORDERED: WARFARIN SODIUM 2.5 MG TAB PO SCH (21:00)
--- NOTE | 2018-05-15 12:54 | GDS ---
[f rep st] DISCHARGE SUMMARY ADMITTING DIAGNOSIS: Left lower extremity traumatic hematoma. SECONDARY DIAGNOSES: Coronary artery disease, GERD, gastroparesis, hypertension, mitral regurgitatio n, osteoarthritis, a-fib, spinal stenosis. REASON FOR ADMISSION: 82-year-old woman who developed a large traumatic hematoma of her left lower e xtremity while on anticoagulation. She presents at this time for debridement of skin and soft tissue with split-thickness skin graft, pain control, and observation. HOSPITAL COURSE: She was taken to the operating room on 05/11/[address] Luz Elena Campbell for debridemen t of skin, soft tissue, and a split-thickness skin graft with wound VAC placement. At the time of boogie rgery, the wound measured 16.8 x 14.7 x 0.3 cm. She was postoperatively evaluated by Infectious Dise ase who recommended continuing on a course of doxycycline and Augmentin. She was discharged home on postoperative day #[address] in [address], on therapeutic antibiotics. Pain is well controlled wi th oral pain medication, tolerating regular diet. Pain is well controlled. DISCHARGE CONDITION: Being discharged home in stable condition. Pain is well controlled, tolerating regular diet, ambulating independently. DISCHARGE MEDICATIONS: Prescription refilled for doxycycline, Augmentin, lisinopril. Continue home medications. Please see EMR for further detail. POST DISCHARGE INSTRUCTIONS: Left lower extremity wound VAC in continuously. May change donor site dressing as needed. Continue 10-day course of antibiotics. Follow up in 1 week for wound VAC soniaa l. Call in the meantime with worsening symptoms, questions, or concerns. Orders sent to home care. /[id number]/MODL
--- NOTE | 2018-05-16 12:06 | POSTANESTH ---
Post Anesthetic Evaluation Cardiovascular Status: Normal, Stable Respiratory Status: Normal, Stable Level of Consciousness/Mental Status: Can Participate in Eval Pain Control: Adequate, Prn Tx Ordered Nausea/Vomiting Control: Adequate, Prn Tx Ordered Complications Possibly Related to Anesthesia: None Noted (for surgery on 05/11/18 )
== END 2018-05-12 16:07 ==
LOC: F3E 09:25
PROVIDERS: ADMIT Surgery; ATTEND Surgery
PROC: 0HRLX74 Replacement of Left Lower Leg Skin with Autologous Tissue Substitute, Partial Thickness, External Approach (ICD-10-PCS; principal; 2018-05-11 11:00)
PROC: 0HBLXZZ Excision of Left Lower Leg Skin, External Approach (ICD-10-PCS; principal; 2018-05-11 11:00)
DX: L03.116 Cellulitis of left lower limb (principal); S80.12XD Contusion of left lower leg, subsequent encounter; W22.8XXD Striking against or struck by other objects, subsequent encounter; I25.10 Atherosclerotic heart disease of native coronary artery without angina pectoris; K21.9 Gastro-esophageal reflux disease without esophagitis; I10 Essential (primary) hypertension; I48.0 Paroxysmal atrial fibrillation; I35.1 Nonrheumatic aortic (valve) insufficiency; M19.90 Unspecified osteoarthritis, unspecified site; M48.00 Spinal stenosis, site unspecified
CPT/HCPCS: 15002; 15100; 97161; J0171; J0690; J1100; J1170; J2370; J2405; J2704; J3010

== ENCOUNTER → 2018-08-14 | Outpatient (CLI) | payer OTHER, MEDICARE | LOC: CIMAGING 14:49 ==